=== PATIENT | female | born 1985 | race Caucasian/White ===

== ENCOUNTER 2017-10-13 06:04 | Inpatient (IN) ==
[2017-10-13] MEDS ORDERED: CALCIUM CARBONATE Chewable 500mg TABLET PO PRN (06:25)
[2017-10-13] MEDS ORDERED: OXYTOCIN DRIP 30 UNIT/500 ML ML IV PRN (06:25)
[2017-10-13] MEDS ORDERED: ACETAMINOPHEN 500 MG TABLET PO PRN (06:25)
[2017-10-13] MEDS ORDERED: METHYLERGONOVINE 0.2 MG/ML INJECTION IM PRN (06:25)
[2017-10-13] MEDS ORDERED: MAG-AL + SIM ORAL LIQUID 30ml PO PRN (06:25)
[2017-10-13] MEDS ORDERED: CARBOPROST 250 MCG/ML INJECTION IM PRN (06:25)
[2017-10-13] MEDS ORDERED: D5LR 1,000 ML IV PRN (06:25)
[2017-10-13] MEDS ORDERED: LIDOCAINE 1% (10mg/ml) 2mL INJ PF SDV ID PRN (06:25)
[2017-10-13] MEDS ORDERED: SALINE FLUSH 10ml SYRINGE IV PRN (06:25)
--- OUTSIDE RECORDS SUMMARY | 2017-10-13 06:27 | External Medical Summary | Continuity of Care Document ---
:1985 Author Organization [facility] Address [address] [place], [place] [id number] Phone Care Team Providers Name Role Phone Yanni Rizzo APRN Unavailable Unavailable Allergies, Adverse Reactions, Alerts Substance Reaction Severity Status No Known Drug Allergies Unknown Active Medications Medication Instructions Dosage Effective Dates Status Comments (start - stop) Novolin R Regular inject 2 Unit by - Active U-100 Insulin 100 Subcutaneous route unit/mL injection with evening meal. solution Increase by 2 units if needed to keep PP sugar <120. Lantus U-100 inject by 5 units - Active Insulin 100 subcutaneous route unit/mL at bedtime. Please subcutaneous dispense insulin solution pen if her insurance will cover. lancets 33 gauge use four times a - Active day OneTouch Verio test 1 Drop by Not Available - Active ICD 10: strips Intradermal route O24.410 4 times every day fasting and postprandial OneTouch Verio - Active ICD 10: System O24.410 FOLIC ACID - Active (unknown strength) 28 mg take 1 tablet by Not Available - Active iron-800 mcg oral route every tablet day Problems Condition Effective Dates (start - stop) Clinical Status Gestational diabetes in , - insulin controlled 34 weeks gestation of - Encounter for suprvsn of normal - , first trimester Less than 8 weeks gestation of - Gestational diabetes in , - insulin controlled 33 weeks gestation of - Gestational diabetes in , - insulin controlled Streptococcus B carrier state - complicating 36 weeks gestation of - Polycystic ovarian syndrome Encounter for [facility] general cnsl and advice on procreation Encounter for test, result - negative Secondary oligomenorrhea Secondary oligomenorrhea Abnormal weight gain Pap Smear Screening, Cervix Encounter for [facility] general cnsl and - advice on procreation Irregular Menses Gestational diabetes mellitus in - , diet controlled 29 weeks gestation of - Gestational diabetes mellitus in - , diet controlled 27 weeks gestation of - Gestational diabetes mellitus in - , diet controlled 31 weeks gestation of - Gestational diabetes mellitus in - , diet controlled 29 weeks gestation of - Gestational diabetes mellitus in - , diet controlled 30 weeks gestation of - Gestational diabetes in , - insulin controlled 37 weeks gestation of - Gestational diabetes in , - insulin controlled 34 weeks gestation of - Gestational diabetes in , - insulin controlled 35 weeks gestation of - Gestational diabetes in , - insulin controlled 36 weeks gestation of - Gestational diabetes in , - insulin controlled 35 weeks gestation of - Gestational diabetes in , - insulin controlled Streptococcus B carrier state - complicating 37 weeks gestation of - Gestational diabetes in , - insulin controlled 33 weeks gestation of - Oth infect w sexl mode of transmiss - comp preg, second tri Encounter for suprvsn of normal - , second trimester 19 weeks gestation of - Encounter for suprvsn of normal - , first trimester 11 weeks gestation of - Encounter for suprvsn of normal - , second trimester 23 weeks gestation of - Encounter for suprvsn of normal - , second trimester Encounter For Screening For - Malformations 15 weeks gestation of - Encounter for suprvsn of normal - , third trimester 28 weeks gestation of - Procedures Procedure Date OB Visit No Charge Results Test Name Date and Time Measure Units Reference Range Abnormal Flag Comments Unknown Advance Directives Directive Yes / No Effective Date File Name Unknown Encounters Encounter Practice Location Reason(s) Diagnoses Date Provider Care Team Description For Visit Members Jaime [place] Gestational Viveros Referring In Womens diabetes in 0-201 [place]. Provider: Mendy ACEVEDO, , 8 700 [place] Viveros PO Box insulin Medical K, 700 1522, [facility] [address], [facility] Dr [place], state 120, Sly 120, , complicating Clifford Silverstreet, [email or web address] weeks [place], [place], tel:+ gestation [phone]. , [place]. tel: tel: [phone] Jaime [place] Gestational Viveros Referring In Womens Ultrasound diabetes in 0-201 [place]. Provider: Mendy ACEVEDO, , 8 700 Monet Viveros PO Box insulin Medical K, 700 1522, [email or web address] [place] [address], weeks gestation Dr, [facility] Dr [place]KEON, of 120, Sly 120, [id number], [facility], [place], [place], tel:+ [phone]. , [place]. tel: tel: [phone] Jaime [place] Gestational 2 Viveros Referring In Womens diabetes in 3-201 [place]. Provider: Health KRISTINA, , 8 700 Monet Viveros PO Box insulin Medical K, 700 1522, [facility] [address], [facility] Dr [place]KEON, state 120, Sly 120, [id number], complicating Clifford [place], [email or web address] weeks LINDA, [place], tel:+ gestation [phone]. , [place]. tel: tel: [phone] Jaime [place] Gestational Sep-2 Viveros Referring In Womens Ultrasound diabetes in [place]. Provider: Health PA, , 8 700 Monet Viveros PO Box insulin Medical K, 700 1522, [email or web address] [facility] , [facility] Dr [place]KEON, of 120, Sly 120, [id number], Clifford [place], [facility], [place], tel: [phone]. , [place]. tel: tel: [phone] Jaime [place] Gestational Sep- Viveros Referring In Womens diabetes in [place]. Provider: Health PA, , 8 700 Monet Viveros PO Box insulin Medical K, 700 1522, [email or web address] [facility] [place], weeks gestation , [facility] Dr MCKEON, of 120, Sly 120, , Clifford [place], [facility], [place], tel: [phone]. , [place]. tel: tel: [phone] Jaime [place] Gestational Sep- Viveros Referring In Womens Ultrasound diabetes in [place]. Provider: Health PA, , 8 700 Monet Viveros PO Box insulin Medical K, 700 1522, [email or web address] [facility], weeks gestation , [facility] Dr MCKEON, of 120, Sly 120, [id number], Clifford [place], [place], [place], tel: [phone]. , [place]. tel: tel: [phone] Jaime [place] Gestational Sep-0 Viveros Referring In Womens diabetes in [place]. Provider: Health PA, , 8 700 Moent Viveros PO Box insulin Medical K, 700 1522, [email or web address] [facility], weeks gestation , [facility] Dr [place]KE[place], of 120, Sly 120, [id number], Clifford [place], [place], [place], tel: [phone]. , [place]. tel: tel: [phone] Jaime [place] Gestational Sep-0 Viveros Referring In Womens Ultrasound diabetes in [place]. Provider: Health PA, , 8 700 Monet Viveros PO Box insulin Medical K, 700 1522, [email or web address] [facility], weeks gestation , [facility] Dr [place]KEON, of 120, Sly 120, , Clifford [place], [place], tel: [phone]. , [place]. tel: tel: [phone] Jaime [place] Gestational Sep-0 Viveros Referring In Womens diabetes in [place]. Provider: Health PA, , 8 700 Monet Viveros PO Box insulin Medical K, 700 1522, [email or web address] [facility] , [facility] Dr [place]KEON, of 120, Sly 120, , Clifford [place], [place], tel: [phone]. , [place]. tel: tel: [phone] Jaime [place] Gestational Sep-0 Viveros Referring In Womens Ultrasound diabetes in [place]. Provider: Health PA, , 8 700 Monet Viveros PO Box insulin Medical K, 700 1522, [email or web address] [facility] , [facility] Dr [place]KEON, of 120, Sly 120, , Clifford [place], [place], tel: [phone]. , [place]. tel: tel: [phone] [place] Gestational Aug-1 Viveros Referring In Womens diabetes mellitus [place]. Provider: Health PA, in , 8 700 Monet Vievros PO Box diet [email or web address] Medical K, 700 1522, weeks gestation [facility], of , [facility] Dr [place]KEON, 120, Sly 120, , Clifford [place], [place], tel: [phone]. , [place]. tel: tel: [phone] Jaime [place] Gestational Daren- Viveros Referring In Womens diabetes mellitus 1-201 [place]. Provider: Health PA, in , 8 700 Monet Viveros PO Box diet [email or web address] Medical K, 700 1522, weeks gestation [facility], of , [facility] Dr [place]KEON, 120, Sly 120, [id number], Clifford [place], [place], tel:[phone]. , [place]. tel: tel: [phone] [place] Gestational Daren-0 Viveros Referring In Womens diabetes mellitus 4-201 [place]. Provider: Health PA, in , 8 700 Monet Viveros PO Box diet [email or web address] Medical K, 700 1522, weeks gestation [facility], of , [facility] Dr [place]KEON, 120, Sly 120, [id number], Clifford [place], [place], tel:+ [phone]. , [place]. tel: tel: [phone] [place] Gestational Daren-0 Viveros Referring In Womens Ultrasound diabetes mellitus 4-201 [place]. Provider: Health PA, in , 8 700 Monet Viveros PO Box diet [email or web address] Medical K, 700 1522, weeks gestation [facility], of , [facility] Dr [place]ON, 120, Sly 120, [id number], Clifford [place], [place], tel: [phone]. , [place]. tel: tel: [phone] H[place] Encounter for May-2 Viveros Referring In Womens suprvsn of normal 3-201 [place]. Provider: Health PA, , third 8 700 Monet Viveros PO Box [email or web address] weeks Medical K, 700 1522, gestation of [facility], , [facility] Dr [place]KEON, 120, Sly 120, [id number], Clifford [place], [place], tel: [phone]. , [place]. tel: tel: [phone] Horton Gestational May-2 Viveros Referring In Womens diabetes mellitus 2-201 [place]. Provider: Health PA, in , 8 700 Monet Viveros PO Box diet [email or web address] Medical , 700 1522, weeks gestation [facility], of , [facility] Dr [place], 120, Sly 120, , Clifford [place], [place], [place], tel:+ [phone]. , [place]. tel: tel: [phone] Jaime H[place] May-2 Viveros In Womens 1-201 [place]. Health KRISTINA, 8 700 PO Box Medical 1522, [place], , [facility] [place], 120, , [place], tel:[phone] , [place]. tel: [phone] Jaime [place] Encounter for Apr-2 Viveros Referring In Womens suprvsn of normal 4-201 [place]. Provider: Health KRISTINA, , second 8 700 Monet Viveros PO Box [email or web address] weeks [facility], 700 1522, gestation of [facility], Dr, [facility] Dr [place]KE[place], 120, Sly 120, , Clifford [place], [place], [place], tel:+ [phone]. , [place]. tel: tel: [phone] Jaime [place] Oth infect w sexl Mar-2 Viveros Referring In Womens mode of transmiss 7-201 [place]. Provider: Health KRISTINA, comp preg, second 8 700 Monet Viveros PO Box triEncounter for [facility], 700 1522, suprvsn of normal [facility], , second , [facility] Dr [place]KEON, [email or web address] weeks 120, Sly 120, , gestation of Clifford [place], [place], [place], tel: [phone]. , [place]. tel: tel: [phone] Jaime [place] Encounter for Feb-2 Viveros Referring In Womens suprvsn of normal 7-201 [place]. Provider: Health KRISTINA, , second 8 700 [place]et Viveros PO Box trimesterEncounte Medical , 700 1522, r For [facility], Screening For , [facility] Dr [place]KEON, [id number] 120, Sly 120, [id number], weeks gestation Clifford [place], [place], [place], tel: [phone]. , [place]. tel: tel: [phone] Associates Clifford Encounter for Jeferson-3 Viveros Referring In Womens suprvsn of normal 0-201 [place]. Provider: Mendy ACEVEDO, , first 8 700 Monet Viveros PO Box [email or web address] weeks Medical , 700 1522, gestation of [facility], , [facility] Dr [place]KE[place], 120, Sly 120, , Clifford [place], [place], tel:[phone]. , [place]. tel: tel: [phone] Jaime H[place] Encounter for Jeferson-0 Viveros Referring In Womens suprvsn of normal 2-201 [place]. Provider: Mendy ACEVEDO, , first 8 700 Monet Viveros PO Box trimesterLess Medical , 700 1522, than 8 weeks [facility], gestation of , [facility] Dr [place]KEON, 120, Sly 120, , Clifford [place], [place], tel: [phone]. , [place]. tel: tel: [phone] Associates Clifford Irregular Menses Dec-2 Viveros In Womens 1-201 [place]. Mendy ACEVEDO, 7 700 PO [address] Medical [address], [address], [facility] [place], 120, [id number], [place], [place], tel: [phone] , [place]. tel: [phone] Jaime H[place] Polycystic Sep-1 Viveros Referring In Womens ovarian 3-201 [place]. Provider: Mendy ACEVEDO, syndromeEncounter 7 700 Monet Viveros PO Box for ot general Medical K, 700 1522, cnsl and advice [facility], on , [facility] Dr MCKEON, procreationEncoun 120, Sly 120, [id number], ter for Clifford [place], test, result [place], tel: [phone]. , [place]. tel: tel: [phone] [facility] Oct- Viveros Referring In Womens oligomenorrheaSec 2-201 [place]. Provider: Mendy ACEVEDO, ondary 7 700 Monet Viveros PO Box oligomenorrheaAbn Medical , 700 1522, ormal weight [facility] [place], [address], [place], Screening, 120, Sly 120, , CervixEncounter [place], for oth general [place], tel: cnsl and advice [phone]. on procreation , [place]. tel: tel: [phone] Jaime H[place] May-2 [place] In Womens 8-200 [place]. Mendy ACEVEDO, 8 700 PO [address] Medical [address], Center Dr Lj, [place], 120, , [place], tel: [phone] , [place]. tel: [phone] Family History Family Member Diagnosis Age At Onset Maternal Grandfather Diabetes mellitus No family history of Breast Cancer No family history of Epilepsy No family history of Cardiovascular Disease Maternal Grandfather Leukemia No family history of Stroke Paternal Grandmother Colon Cancer No family history of Thrombosis No family history of Hypertension No family history of Ovarian Cancer No family history of Thyroid Disorder No family history of Osteoporosis Paternal Grandmother Renal disease No family history of Lung Disease Son Congenital Anomaly Immunizations Vaccine Date Status Comments Tdap completed Source: Other Provider Influenza, injectable, completed Note: [facility] quadrivalent, preservative free, 3 Employee ; Source: Other yrs or older Provider Payers Payer name Insurance type Covered democrat ID Authorization(s) [facility] [id number] BCBS Out Of State [id number] Social History Type Description Quantity Date Captured Alcohol Use Details No Caffeine Use Details Unknown Tobacco Use Status Unknown Smoking Status Never smoker Vital Signs Date / Height Weight BMI Pulse Blood Temperature Respiratory Body Head BMI Time: Rate Pressure Rate Surface Circumference percentile Area . 43.0 lbs 6 3:14 kg/m PM eter (2) . 43.0 130/77 -2018 lbs 6 mm[Hg] 3:34 kg/m PM eter (2) Chief Complaint And Reason For Visit Unknown Chief Complaint And Reason For Visit Reason For Referral Reason For Referral Unknown Plan Of Care Date Type Action Status Goal Lifestyle education regarding completed diet Goal Lifestyle education regarding completed diet Appointment Huong Herrera BOOKED Appointment Huong Herrera BOOKED Future Order: Lab Order HIV 1/0/2 Ag/Ab with Reflex Ordered ([id number]) Future Order: Lab Order Obstetric Panel With Ordered Fourth-generation HIV ([id number]) Future Order: Lab Order hCG,Beta Subunit, Qnt, Serum Ordered ([id number]) Future Order: Radiology Order Ultrasound OB Follow-up ([id number]) Ordered Future Order: Radiology Order Ultrasound OB Follow-up ([id number]) Ordered Future Order: Radiology Order Biophysical Profile without NST Ordered ([id number]) Future Order: Radiology Order Biophysical Profile without NST Ordered ([id number]) Future Order: Radiology Order Biophysical Profile without NST Ordered ([id number]) Future Order: Radiology Order Biophysical Profile without NST Ordered ([id number]) Future Order: Radiology Order Ultrasound OB Follow-up ([id number]) Ordered Date Type Problem Goal Intervention Status Start Date Unknown. History Of Present Illness Encounter Date Complaint History Of Present Illness This patient has no known history of present illness Functional Status Encounter Date Functional Assessment Cognitive Assessment Unknown Medications Administered Medication Instructions Dosage Effective Dates (start - stop) Status Comments Drug Treatment Unknown Instructions Date Instruction Additional Information influenza vaccine environmental / work hazards travel use of any medications (including supplements, vitamins, herbs, OTC drugs) domestic violence seat belt use childbirth classes / hospital facilities hospital registration genetic testing HIV and other routine tests risk factors identified by history anticipated course of care nutrition and weight gain counseling, special diet toxoplasmosis precautions (cats / raw meat) sexual activity exercise indications for ultrasound new ob handbook Giving encouragement to exercise Related to Body mass index 33.0-33.9 Lifestyle education regarding diet Related to Body mass index 33.0-33.9 Giving encouragement to exercise Related to Body mass index 33.0-33.9 Lifestyle education regarding diet Related to Body mass index 33.0-33.9
--- OUTSIDE RECORDS SUMMARY | 2017-10-13 06:28 | External Medical Summary | Continuity of Care Document ---
:1985 Author Organization [facility] Address [address] [place], [place] [id number] Phone Care Team Providers Name Role Phone Yanni Rizzo APRN Unavailable Unavailable Allergies, Adverse Reactions, Alerts Substance Reaction Severity Status No Known Drug Allergies Unknown Active Medications Medication Instructions Dosage Effective Dates Status Comments (start - stop) Lantus U-100 inject by 5 units - [...] insulin controlled 33 weeks gestation of - Encounter for suprvsn of normal - , first trimester Less than 8 weeks gestation of - Polycystic ovarian syndrome Encounter for oth general cnsl and advice on procreation Encounter for test, result - negative Secondary oligomenorrhea Secondary oligomenorrhea Abnormal weight gain Pap Smear Screening, Cervix Encounter for oth general cnsl and - advice on procreation [...] Provider Care Team Description For Visit [facility] [place] Gestational Sep- Viveros Referring In Womens Ultrasound diabetes in [place]. Provider: Health PA, , 8 700 [place] Viveros PO Box insulin Medical K, 700 1522, [email or web address] [facility], weeks gestation , [facility] Dr MCKEON, of 120, Sly 120, , [place], LINDA MCKEON, tel: [phone]. , [place]. tel: tel: [phone] Jaime [place] Gestational Sep-1 Viveros Referring In Womens diabetes in [place]. Provider: Health PA, , 8 700 [place] Viveros PO Box insulin Medical K, 700 1522, [email or web address] [facility], weeks gestation , [facility] Dr MCKEON, of 120, Sly 120, , [place], LINDA MCKEON, tel: [phone]. , [place]. tel: tel: [phone] [place] Gestational Sep-1 Viveros Referring In Womens Ultrasound diabetes in [place]. Provider: Health PA, , 8 700 [place] Viveros PO Box insulin Medical K, 700 1522, [id number] [facility], weeks gestation , [facility] Dr MCKEON, of 120, Sly 120, , [place], LINDA MCKEON, tel: [phone]. , [place]. tel: tel: [phone] Jaime [place] Gestational Sep-0 Viveros Referring In Womens diabetes in [place]. Provider: Health PA, , 8 700 [place] Viveros PO Box insulin Medical K, 700 1522, [email or web address] [facility], [facility] , [facility] Dr MCKEON, of 120, Sly 120, , [place], LINDA MCKEON, tel:[phone]. , [place]. tel: tel: [phone] Jaime [place] Gestational Rubio-0 Viveros Referring In Womens Ultrasound diabetes in [place]. Provider: Health PA, , 8 700 [place] Viveros PO Box insulin Medical K, 700 1522, [email or web address] [facility], weeks gestation , [facility] Dr MCKEON, of 120, Sly 120, [id number], [place], LINDA, LINDA, tel: [phone]. , [place]. tel: tel: [phone] Jaime [place] Gestational Rubio-0 Viveros Referring In Womens diabetes in [place]. Provider: Health PA, , 8 700 [place] Viveros PO Box insulin Medical K, 700 1522, [email or web address] [facility], weeks gestation , [facility] Dr MCKEON, of 120, Sly 120, , [place], LINDA, LINDA, tel:[phone]. , [place]. tel: tel: [phone] Jaime [place] Gestational Rubio-0 Viveros Referring In Womens Ultrasound diabetes in [place]. Provider: Health PA, , 8 700 [place] Viveros PO Box insulin Medical K, 700 1522, [email or web address] [facility], weeks gestation , [facility] Dr MCKEON, of 120, Sly 120, , [place], LINDA, LINDA, tel: [phone]. , [place]. tel: tel: [phone] Jaime [place] Gestational Daren-1 Viveros Referring In Womens diabetes mellitus [place]. Provider: Health KRISTINA, in , 8 700 [place] Viveros PO Box diet [email or web address] Medical K, 700 1522, weeks gestation [facility], of , [facility] Dr MCKEON, 120, Sly 120, [id number], [place], [place] LINDA, LINDA, tel:[phone]. , [place]. tel: tel: [phone] Jaime [place] Gestational Daren-1 Viveros Referring In Womens diabetes mellitus - [place]. Provider: Health PA, in , 8 700 [place] Viveros PO Box diet Medical K, 700 1522, weeks gestation [facility], of , [facility] Dr MCKEON, 120, Sly 120, [id number], [place], LINDA, LINDA, tel: [phone]. , [place]. tel: tel: [phone] Jaime [place] Gestational Daren-0 Viveros Referring In Womens diabetes mellitus 4-201 [place]. Provider: Health KRISTINA, in , 8 700 [place] Viveros PO Box diet [email or web address] Medical , 700 1522, weeks gestation [facility], of , [facility] Dr MCKEON, 120, Sly 120, [id number], [place], LINDA, LINDA, tel: [phone]. , [place]. tel: tel: [phone] Jaime [place] Gestational Daren-0 Viveros Referring In Womens Ultrasound diabetes mellitus 4-201 [place]. Provider: Health KRISTINA, in , 8 700 [place] Viveros PO Box diet [email or web address] Medical , 700 1522, weeks gestation [facility], of , [facility] Dr MCKEON, 120, Sly 120, [id number], [place], LINDA, LINDA, tel: [phone]. , [place]. tel: tel: [phone] Jaime [place] Encounter for May-2 Viveros Referring In Womens suprvsn of normal 3-201 [place]. Provider: Mendy ACEVEDO, , third 8 700 [place] Viveros PO Box [email or web address] weeks Medical , 700 1522, gestation of [facility], , [facility] Dr MCKEON, 120, Sly 120, [id number], [place], [place] LINDA, LINDA, tel: [phone]. , [place]. tel: tel: [phone] Jaime [place] Gestational May-2 Viveros Referring In Womens diabetes mellitus 2-201 [place]. Provider: Health KRISTINA, in , 8 700 [place] Viveros PO Box diet [email or web address] Medical , 700 1522, weeks gestation [facility], of , [facility] Dr MCKEON, 120, Sly 120, [id number], [place], [place] LINDA MCKEON, tel:[phone]. , [place]. tel: tel: [phone] Jaime [place] May-2 Viveros In Womens 1-201 [place]. Health KRISTINA, 8 700 PO Box Medical 1522, [facility], , [facility] [place], 120, [id number], [place], tel:[phone] , [place]. tel: [phone] Jaime [place] Encounter for Apr-2 Viveros Referring In Womens suprvsn of normal 4-201 [place]. Provider: Health KRISTINA, , second 8 700 [place] Viveros PO Box [email or web address] weeks Medical , 700 1522, gestation of [facility], , [facility] Dr MCKEON, 120, Sly 120, , [place], LINDA MCKEON, tel:[phone]. , [place]. tel: tel: [phone] Jaime [place] Oth infect w sexl Mar-2 Viveros Referring In Womens mode of transmiss 7-201 [place]. Provider: Health KRISTINA, comp preg, second 8 700 [place] Viveros [facility], 700 1522, suprvsn of normal [facility], , second , [facility] Dr MCKEON, [email or web address] weeks 120, Sly 120, , gestation of Clifford [place], [place] LINDA, LINDA, tel: [phone]. , [place]. tel: tel: [phone] Jaime [place] Encounter for Feb-2 Viveros Referring In Womens suprvsn of normal 7-201 [place]. Provider: Mendy AECVEDO, , second 8 700 [place] Viveros PO Box [facility] K, 700 1522, r For [facility], Screening For , [facility] Dr MCKEON, [id number] 120, Sly 120, [id number], weeks gestation Clifford [place], [place] of LINDA MCKEON, tel: [phone]. , [place]. tel: tel: [phone] Jaime [place] Encounter for 3 Viveros Referring In Womens suprvsn of normal 0-201 [place]. Provider: Mendy ACEVEDO, , first 8 700 [place] Viveros PO Box [email or web address] weeks Medical , 700 1522, gestation of [facility], , [facility] Dr MCKEON, 120, Sly 120, , [place], [place], [place], tel: [phone]. , [place]. tel: tel: [phone] Jaime [place] Encounter for Mar-0 Viveros Referring In Womens suprvsn of normal 2-201 [place]. Provider: Mendy ACEVEDO, , first 8 700 [place] Viveros PO Box trimesterLess Medical , 700 1522, than 8 weeks [facility], gestation of Dr, [facility] Dr MCKEON, 120, Sly 120, , [place], [place] LINDA, LINDA, tel:[phone]. , [place]. tel: tel: [phone] Jaime [place] Irregular Menses Dec- Viveros In Womens 1-201 [place]. Mendy ACEVEDO, 7 700 PO Box Medical 1522, [place], , Sly MCKEON, 120, , [place] LINDA [place], tel: [phone] , [place]. tel: [phone] Jaime [place] Polycystic Sep- Viveros Referring In Womens ovarian 3-201 [place]. Provider: Mendy ACEVEDO, syndromeEncounter 7 700 [place] Viveros PO Box for ot general Medical K, 700 1522, cnsl and advice [facility], on , [facility] Dr MCKEON, procreationEncoun 120, Sly 120, [id number], ter for [place], test, result LINDA MCKEON, tel: negative [phone]. , [place]. tel: tel: [phone] [facility] Viveros Referring In Womens oligomenorrheaSec 2-201 [place]. Provider: Health KRISTINA, onjessica 7 700 [place] Viveros PO Box oligomenorrheaAb Medical , 700 1522, [facility] L[facility], willPajames Santana Dr, Sly Center Dr [place], Screening, 120, Sly 120, , CervixEncounter [place], for oth general [place], [place], tel: cnsl and advice [phone]. on procreation , [place]. tel: tel: [phone] Jaime [place] May-2 [place] In Womens 8-200 [place]. Health KRISTINA, 8 700 PO Box Medical 1522, Center Lj, , Sly [place], 120, , [place], tel: [phone] , [place]. tel: [phone] Family History Family Member Diagnosis Age At [...] Source: Other Provider Influenza, injectable, completed Note: [facility] quadrivalent, preservative free, 3 Employee ; Source: Other yrs or older Provider Payers Payer name Insurance type Covered green party ID Authorization(s) [facility] [id number] [employer] Out Of State BL [id number] Social History Type Description Quantity Date Captured Alcohol Use Details No Caffeine Use Details Unknown Tobacco Use Status Unknown Smoking Status Never smoker Vital Signs Date / Height Weight BMI Pulse Blood Temperature Respiratory Body Head BMI Time: Rate Pressure Rate Surface Circumference percentile Area 233.90 42.6 -2018 lbs 4 1:31 kg/m PM eter (2) 41.9 -2018 8 1:28 kg/m PM eter (2) 233.90 42.6 138/78 -2018 lbs 4 mm[Hg] 1:48 kg/m PM eter (2) Chief Complaint And Reason For Visit Unknown Chief Complaint And Reason For Visit Reason For Referral Reason For Referral Unknown Plan Of Care Date Type Action Status Goal Lifestyle education regarding completed diet Goal Lifestyle education regarding completed diet Appointment Huong Herrera KEPT Appointment Huong Herrera BOOKED Appointment Huong Herrera BOOKED Future Order: Lab Order HIV 1/0/2 Ag/Ab with Reflex Ordered ([id number]) Future Order: Lab Order Obstetric Panel With Ordered Fourth-generation HIV ([id number]) Future Order: Lab Order hCG,Beta Subunit, Qnt, Serum Ordered ([id number]) Future Order: Radiology Order Ultrasound OB Follow-up ([id number]) Ordered Future Order: Radiology Order Biophysical Profile without NST Ordered ([id number]) Future Order: Radiology Order Biophysical Profile without NST Ordered ([id number]) Future Order: Radiology Order Biophysical Profile without NST Ordered ([id number]) Future Order: Radiology Order Ultrasound OB Follow-up ([id number]) Ordered Date Type Problem Goal Intervention Status [...]
--- OUTSIDE RECORDS SUMMARY | 2017-10-13 06:28 | External Medical Summary | Continuity of Care Document ---
:1985 Author Organization [email or web address] Address [address] [place], [place] [address] Phone Care Team Providers Name Role Phone Yanni Rizzo APRN Unavailable Unavailable Allergies, Adverse Reactions, Alerts Substance Reaction Severity Status No Known Drug Allergies Unknown Active Medications Medication Instructions Dosage Effective Dates Status Comments (start - stop) Lantus U-100 inject by 5 units - Active Insulin 100 subcutaneous route unit/mL at bedtime. Please subcutaneous dispense insulin solution pen if her insurance will cover. OneTouch Verio test 1 Drop by Not Available - Active ICD 10: strips Intradermal route O24.410 4 times every day fasting and postprandial OneTouch Verio - Active ICD 10: System O24.410 Lancets,Ultra Thin use by Intradermal Not Available - Active ICD 10: route 4 times O24.410 every day FOLIC ACID - Active (unknown strength) 28 mg take 1 tablet by Not Available - Active iron-800 mcg oral route every tablet day Problems Condition Effective Dates (start - stop) Clinical Status Gestational diabetes mellitus in - , diet controlled 30 weeks gestation of - Encounter for suprvsn of normal - , first trimester Less than 8 weeks gestation of - Gestational diabetes in , - insulin controlled 33 weeks gestation of - Polycystic ovarian syndrome [...] diet controlled 29 weeks gestation of - Oth infect w [...] Gestational Viveros Referring In Womens diabetes in 2201 [place]. Provider: Mendy ACEVEDO, , 8 700 [place] Viveros PO Box insulin Medical K, 700 1522, [email or web address] [facility], weeks gestation , [facility] Dr MCKEON, of 120, Sly 120, [id number], [place], LINDA MCKENO, tel:[phone] , [place]. tel: tel: [phone] Jaime [place] Gestational Aug- Viveros Referring In Womens diabetes mellitus 8-201 [place]. Provider: Mendy ACEVEDO, in , 8 700 [place] Viveros PO Box diet [email or web address] Medical K, 700 1522, weeks gestation [facility], of , [facility] Dr MCKEON, 120, Sly 120, [id number], [place], LINDA, LINDA, tel: [phone]. , [place]. tel: tel: [phone] Jaime [place] Gestational Daren-1 Viveros Referring In Womens diabetes mellitus 1-201 [place]. Provider: Health KRISTINA, in , 8 700 [place] Viveros PO Box diet [email or web address] Medical K, 700 1522, weeks gestation [facility], of , [facility] Dr MCKEON, 120, Sly 120, [id number], [place], LINDA, LINDA, tel: [phone]. , [place]. tel: tel: [phone] [place] Gestational Daren-0 Viveros Referring In Womens diabetes mellitus 4-201 [place]. Provider: Health KRISTINA, in , 8 700 [place] Viveros PO Box diet [email or web address] Medical K, 700 1522, weeks gestation [facility], of , [facility] Dr MCKEON, 120, Sly 120, [id number], [place], LINDA, LINDA, tel: [phone]. , [place]. tel: tel: [phone] Jaime [place] Gestational Daren-0 Viveros Referring In Womens Ultrasound diabetes mellitus 4-201 [place]. Provider: Mendy ACEVEDO, in , 8 700 [place] Viveros PO Box diet [email or web address] Medical K, 700 1522, weeks gestation [facility], of , [facility] Dr MCKEON, 120, Sly 120, [id number], [place], [place], [place], tel:[phone]. , [place]. tel: tel: [phone] Jaime [place] Encounter for May-2 Viveros Referring In Womens suprvsn of normal 3-201 [place]. Provider: Health KRISTINA, , third 8 700 [place] Viveros PO Box [email or web address] weeks Medical K, 700 1522, gestation of [facility], , [facility] Dr MCKEON, 120, Sly 120, , [place], LINDA, LINDA, tel:[phone]. , [place]. tel: tel: [phone] Jaime [place] Gestational May-2 Viveros Referring In Womens diabetes mellitus 2-201 [place]. Provider: Health KRISTINA, in , 8 700 [place] Viveros PO Box diet [email or web address] [facility], 700 1522, weeks gestation [facility], of , [facility] Dr MCKEON, 120, Sly 120, , [place], LINDA, LINDA, tel: [phone]. , [place]. tel: tel: [phone] Jaime [place] May-2 Viveros In Womens 1-201 [place]. Mendy ACEVEDO, 8 700 PO Box Medical 1522, [place], Dr, [facility] LINDA, 120, , [place], tel:[phone] , [place]. tel: [phone] Jaime [place] Encounter for Apr-2 Viveros Referring In Womens suprvsn of normal 4-201 [place]. Provider: Mendy ACEVEDO, , second 8 700 [place] Viveros PO Box weeks Medical , 700 1522, gestation of [facility], , [facility] Dr MCKEON, 120, Sly 120, , [place], LINDA, LINDA, tel:[phone]. , [place]. tel: tel: [phone] Jaime [place] Oth infect w sexl Mar-2 Viveros Referring In Womens mode of transmiss 7-201 [place]. Provider: Health KRISTINA, comp preg, second 8 700 [place] Viveros PO Box triEncounter for Medical , 700 1522, suprvsn of normal [facility], , second , [facility] Dr MCKEON, [email or web address] weeks 120, Sly 120, , gestation of [place], [place] LINDA MCKEON, tel: [phone]. , [place]. tel: tel: [phone] Jaime [place] Encounter for Feb-2 Viveros Referring In Womens suprvsn of normal 7-201 [place]. Provider: Health KRISTINA, , second 8 700 [place] Viveros PO Box trimesterEncounte Medical K, 700 1522, [facility] Screening For , [facility] Dr MCKEON, [email or web address] 120, Sly 120, [id number], weeks gestation Clifford [place], [place], [place], tel: [phone]. , [place]. tel: tel: [phone] [place] Encounter for Jeferson-3 Viveros Referring In Womens suprvsn of normal 0-201 [place]. Provider: Health KRISTINA, , first 8 700 [place] Viveros PO Box [email or web address] weeks Medical , 700 1522, gestation of [facility], Dr, [facility] Dr MCKEON, 120, Sly 120, , [place], [place] LINDA MCKEON, tel: [phone]. , [place]. tel: tel: [phone] Jaime [place] Encounter for Jeferson-0 Viveros Referring In Womens suprvsn of normal 2-201 [place]. Provider: Health KRISTINA, , first 8 700 [place] Viveros PO Box trimesterLess Medical K, 700 1522, than 8 weeks [facility] [place], gestation of Dr, [facility] Dr MCKEON, 120, Sly 120, , [place], [place] LINDA MCKEON, tel: [phone]. , [place]. tel: tel: [phone] [place] Irregular Menses Dec-2 Viveros In Womens 1-201 [place]. Health KRISTINA, 7 700 PO Box Medical 1522, [place], Sly [place], 120, , [place], [place] MCKEON, tel:[phone] , [place]. tel: [phone] Jaime [place] Polycystic Sep-1 Viveros Referring In Womens ovarian 3-201 [place]. Provider: Health KRISTINA, syndromeEncounter 7 700 [place] Viveros PO Box for oth general Medical K, 700 1522, cnsl and advice [facility] [place], on , [facility] Center Dr MCKEON, procreationEncoun 120, Sly 120, [id number], ter for [place], test, result LINDA, LINDA, tel: negative [phone]. , [place]. tel: tel: [phone] Jaime [place] Secondary Aug-2 Viveros Referring In Womens oligomenorrheaSec 2-201 [place]. Provider: Mendy ACEVEDO ondary 7 700 [place] Viveros PO Box oligomenorrheaAbn Medical K, 700 1522, ormal weight [facility] [place], gainPap Smear , [facility] Dr MCKEON, Screening, 120, Sly 120, [id number], CervixEncounter [place], [place] for oth general LINDA, LINDA, tel: cnsl and advice [phone]. on procreation , [place]. tel: tel: [phone] Jaime [place] Mar-2 [place] In Womens 8-200 [place]. Health KRISTINA, 8 700 PO Box Medical 1522, [place] [address] [place], [facility] [place], 120, [id number], [place], tel: [phone] , [place]. tel: [phone] Family History Family Member Diagnosis Age At [...] Source: Other Provider Influenza, injectable, completed Note: [facility] quadrivalent, preservative free, 3 Employee ; Source: Other yrs or older Provider Payers Payer name Insurance type Covered alliance party ID Authorization(s) [facility] [id number] [facility] Out Of State [id number] Social History Type Description Quantity Date Captured Alcohol Use Details No Caffeine Use Details No Tobacco Use Status Never smoked tobacco Smoking Status Never smoker Vital Signs Date / Height Weight BMI Pulse Blood Temperature Respiratory Body Head BMI Time: Rate Pressure Rate Surface Circumference percentile Area 231.70 42.2 135/ lbs 4 mm[Hg] 2:15 kg/m PM eter (2) Chief Complaint And Reason For Visit Unknown Chief Complaint And Reason For Visit Reason For Referral Reason For Referral Unknown Plan Of Care Date Type Action Status Goal Lifestyle education regarding completed diet Goal Lifestyle education regarding completed diet Appointment Huong Herrera BOOKED Appointment Huong Herrera BOOKED Appointment Huong Herrera BOOKED Appointment Huong Herrera BOOKED Appointment Huong Herrera BOOKED Appointment Huong Herrera BOOKED Appointment Huong Herrera BOOKED Appointment Huong Herrera BOOKED Future Order: Lab Order HIV 1/0/2 Ag/Ab with Reflex Ordered ([id number]) Future Order: Lab Order Obstetric Panel With Ordered Fourth-generation HIV ([id number]) Future Order: Lab Order hCG,Beta Subunit, Qnt, Serum Ordered ([id number]) Future Order: Radiology Order Ultrasound OB Follow-up ([id number]) Ordered Date Type Problem Goal Intervention Status [...]
--- OUTSIDE RECORDS SUMMARY | 2017-10-13 06:28 | External Medical Summary | Continuity of Care Document ---
:1985 Author Organization [facility] Address [address] [place], [place] [id number] Phone Care Team Providers Name Role Phone [...] - Polycystic ovarian syndrome Encounter for [facility] general cnsl and advice on procreation Encounter for test, result - negative Secondary oligomenorrhea Secondary oligomenorrhea Abnormal weight gain Pap Smear Screening, Cervix Encounter for [facility] general cnsl and - advice on procreation [...] weeks gestation of - Procedures Procedure Date biophys prfl w/o nstress test Results Test Name Date and Time Measure Units Reference Range Abnormal Flag Comments Unknown Advance Directives Directive Yes / No Effective Date File Name Unknown Encounters Encounter Practice Location Reason(s) Diagnoses Date Provider Care Team Description For Visit Members Jaime Horton Gestational Viveros Referring In Womens diabetes in 0-201 [place]. Provider: Mendy ACEVEDO, , 8 700 Monet Viveros PO Box insulin Medical K, 700 1522, [facility] le[address], [facility] Dr MCKEON, state 120, Sly 120, , complicating Clifford [place], [email or web address] weeks LINDA MCKEON, tel:+ gestation [phone]. , [place]. tel: tel: [phone] Jaime Horton Gestational 3 Viveros Referring In Womens Ultrasound diabetes in 0-201 [place]. Provider: Mendy ACEVEDO, , 8 700 Monet Viveros PO Box insulin Medical K, 700 1522, [email or web address] [place], weeks gestation , [facility] Dr MCKEON, of 120, Sly 120, [id number], [facility], LINDA MCKEON, tel: [phone]. , [place]. tel: tel: [phone] Jaime Horton Gestational 2 Viveros Referring In Womens diabetes in 3-201 [place]. Provider: Mendy ACEVEDO, , 8 700 Monet Viveros PO Box insulin Medical K, 700 1522, [facility] [address] [facility], [facility] Dr MCKEON, state 120, Sly 120, [id number], complicating Clifford [place], weeks LINDA MCKEON, tel:+ gestation [phone]. , [place]. tel: tel: [phone] Jaime Horton Gestational Sep-2 Viveros Referring In Womens Ultrasound diabetes in [place]. Provider: Health PA, , 8 700 Monet Viveros PO Box insulin Medical K, 700 1522, [email or web address] [facility], weeks gestation , [facility] Dr MCKEON, of 120, Syl 120, [id number], Clifford H[place], LINDA, LINDA, tel: [phone]. , [place]. tel: tel: [phone] Jaime Horton Gestational Sep-1 Viveros Referring In Womens diabetes in [place]. Provider: Health PA, , 8 700 Monet Viveros PO Box insulin Medical K, 700 1522, [email or web address] [facility], weeks gestation , [facility] Dr MCKEON, of 120, Sly 120, , Clifford Horton, LINDA, LINDA, tel: [phone]. , [place]. tel: tel: [phone] Jaime Horton Gestational Sep-1 Viveros Referring In Womens Ultrasound diabetes in [place]. Provider: Health PA, , 8 700 Monet Viveros PO Box insulin Medical K, 700 1522, [email or web address] [facility], weeks gestation , [facility] Dr MCKEON, of 120, Sly 120, , Clifford Horton, LINDA MCKEON, tel: [phone]. , [place]. tel: tel: [phone] Jaime Horton Gestational Sep-0 Viveros Referring In Womens diabetes in [place]. Provider: Health PA, , 8 700 Monet Viveros PO Box insulin Medical K, 700 1522, [email or web address] [facility], weeks gestation , [facility] Dr MCKEON, of 120, Sly 120, [id number], Clifford Horton, LINDA MCKEON, tel: [phone]. , [place]. tel: tel: [phone] Jaime Horton Gestational Sep-0 Viveros Referring In Womens Ultrasound diabetes in [place]. Provider: Health PA, , 8 700 Monet Viveros PO Box insulin Medical K, 700 1522, [email or web address] [facility], weeks gestation , [facility] Dr MCKEON, of 120, Sly 120, , Clifford Horton, LINDA, LINDA, tel: [phone]. , [place]. tel: tel: [phone] Jaime Horton Gestational Sep-0 Viveros Referring In Womens diabetes in [place]. Provider: Health PA, , 8 700 Monet Viveros PO Box insulin Medical K, 700 1522, [email or web address] [facility], weeks gestation , [facility] Dr MCKEON, of 120, Sly 120, , Clifford Horton, LINDA, LINDA, tel: [phone]. , [place]. tel: tel: [phone] Jaime Horton Gestational Sep-0 Viveros Referring In Womens Ultrasound diabetes in [place]. Provider: Health PA, , 8 700 Monet Viveros PO Box insulin Medical K, 700 1522, [email or web address] [facility] [place], weeks gestation , [facility] Dr MCKEON, of 120, Sly 120, , Clifford Horton, LINDA, LINDA, tel: [phone]. , [place]. tel: tel: [phone] Jaime Horton Gestational Aug- Viveros Referring In Womens diabetes mellitus [place]. Provider: Health PA, in , 8 700 Monet Viveros PO Box diet [id number] Medical K, 700 1522, weeks gestation [facility] [place], of , [facility] Dr MCKEON, 120, Sly 120, [id number], Clifford [place], [place], [place], tel: [phone]. , [place]. tel: tel: [phone] Jaime Horton Gestational Daren- Viveros Referring In Womens diabetes mellitus 1-201 [place]. Provider: Mendy ACEVEDO, in , 8 700 Monet Viveros PO Box diet [id number] Medical K, 700 1522, weeks gestation [facility], of , [facility] Dr MCKEON, 120, Sly 120, [id number], Clifford Horton, LINDA, LINDA, tel:+ [phone]. , [place]. tel: tel: [phone] Horton Gestational Daren-0 Viveros Referring In Womens diabetes mellitus 4-201 Monet. Provider: Mendy ACEVEDO, in , 8 700 Monet Viveros PO Box diet [id number] Medical K, 700 1522, weeks gestation [facility], of , [facility] Dr MCKEON, 120, Sly 120, [id number], Clifford Horton, LINDA, LINDA, tel:[phone]. , [place]. tel: tel: [phone] Horton Gestational Daren-0 Viveros Referring In Womens Ultrasound diabetes mellitus 4-201 [place]. Provider: Mendy ACEVEDO, in , 8 700 Monet Viveros PO Box diet [email or web address] Medical K, 700 1522, weeks gestation [facility] [place], of , [facility] Dr MCKEON, 120, Sly 120, [id number], Clifford Horton, LINDA MCKEON, tel:[phone]. , [place]. tel: tel: [phone] Horton Encounter for May-2 Viveros Referring In Womens suprvsn of normal 3-201 [place]. Provider: Health KRISTINA, , third 8 700 Monet Viveros PO Box [email or web address] weeks Medical , 700 1522, gestation of [facility] [place], , [facility] Dr MCKEON, 120, Sly 120, [id number], Clifford Horton, LINDA, LINDA, tel: [phone]. , [place]. tel: tel: [phone] Horton Gestational May-2 Viveros Referring In Womens diabetes mellitus 2-201 [place]. Provider: Health KRISTINA, in , 8 700 Monet Viveros PO Box diet [id number] Medical K, 700 1522, weeks gestation [facility], of , [facility] Dr MCKEON, 120, Sly 120, [id number], Clifford [place], [place], LINDA, tel:+ [phone]. , [place]. tel: tel: [phone] Jaime Horton May-2 Viveros In Womens 1-201 Monet. Mendy ACEVEDO, 8 700 PO Box Medical 1522, [place], , [facility] [place], 120, [id number], [place], tel:+ [phone] , [place]. tel: [phone] Jaime Horton Encounter for Apr-2 Viveros Referring In Womens suprvsn of normal 4-201 Monet. Provider: Mendy ACEVEDO, , second 8 700 Monet Viveros PO Box [email or web address] weeks Medical , 700 1522, gestation of [facility], , [facility] Dr MCKEON, 120, Lsy 120, , Clifford [place], [place], [place], tel:[phone]. , [place]. tel: tel: [phone] Jaime Horton Oth infect w sexl Mar-2 Viveros Referring In Womens mode of transmiss 7-201 Monet. Provider: Mendy ACEVEDO, comp preg, second 8 700 Monet Viveros PO Box triEncounter for Medical K, 700 1522, suprvsn of normal [facility], , second , [facility] Dr MCKEON, [email or web address] weeks 120, Sly 120, [id number], gestation of Clifford Horton, LINDA, LINDA, tel:[phone]. , [place]. tel: tel: [phone] Jaime Horton Encounter for Feb-2 Viveros Referring In Womens suprvsn of normal 7-201 Monet. Provider: Mendy ACEVEDO, , second 8 700 Monet Viveros PO Box trimesterEncounte Medical , 700 1522, r For [facility] Screening For Dr, [facility] Dr MCKEON, [id number] 120, Sly 120, , weeks gestation Clifford [place], [place] of LINDA, LINDA, tel:[phone]. , [place]. tel: tel: [phone] Associates Clifford Encounter for Jeferson-3 Viveros Referring In Womens suprvsn of normal 0-201 Monet. Provider: Mendy ACEVEOD, , first 8 700 Monet Viveros PO Box [email or web address] weeks Medical , 700 1522, gestation of [facility], , [facility] Dr MCKEON, 120, Sly 120, , Clifford Horton, LINDA MCKEON, tel:[phone]. , [place]. tel: tel: [phone] Jaime Horton Encounter for Jeferson-0 Viveros Referring In Womens suprvsn of normal 2-201 Monet. Provider: Mendy ACEVEDO, , first 8 700 Monet Viveros PO Box trimesterLess Medical , 700 1522, than 8 weeks [facility], gestation of Dr, [facility] Dr MCKEON, 120, Sly 120, , Clifford Horton, LINDA MCKEON, tel:[phone]. , [place]. tel: tel: [phone] Jaime Horton Irregular Menses Dec-2 Viveros In Womens 1-201 Monet. Mendy ACEVEDO, 7 700 PO Box Medical 1522, [place] Dr Lj [facility] LINDA, 120, [id number], Clifford, [place] MCKEON, tel: [phone] , [place]. tel: [phone] Jaime Horton Polycystic Sep-1 Viveros Referring In Womens ovarian 3-201 Monet. Provider: Mendy ACEVEDO syndromeEncounter 7 700 Monet Viveros PO Box for [facility] general Medical K, 700 1522, cnsl and advice [facility], on , [facility] Dr MCKEON, procreationEncoun 120, Sly 120, [id number], ter for Clifford [place], [place] test, result [place], tel: negative [phone]. , [place]. tel: tel: [phone] Associates Clifford Villanueva Oct- Viveros Referring In Womens oligomenorrheaSec 2-201 Monet. Provider: Mendy ACEVEDO, ondary 7 700 Monet Viveros [facility], ormal weight Center Medical [place], David Smear , [place], Screening, 120, Sly 120, , CervixEncounter Clifford, [place], for oth general [place], [place], tel: cnsl and advice [phone]. on procreation , [place]. tel: tel: [phone] Jaime Horton May-2 [place] In Womens 8-200 [place]. Mendy ACEVEDO, 8 700 PO Box Medical 1522, Center Dr Lj, Sly [place], 120, , [place], [place], tel: [phone] , [place]. tel: [phone] Family History Family Member Diagnosis Age At [...] Source: Other Provider Influenza, injectable, completed Note: [facility] quadrivalent, preservative free, 3 Employee ; Source: Other yrs or older Provider Payers Payer name Insurance type Covered libertarian ID Authorization(s) [facility] [id number] BCBS Out Of State [id number] Social History Type Description Quantity Date Captured Unknown Vital Signs Date / Height Weight BMI Pulse Blood Temperature Respiratory Body Head BMI Time: Rate Pressure Rate Surface Circumference percentile Area Unknown Chief Complaint And Reason For Visit Unknown Chief Complaint And Reason For Visit Reason For Referral Reason For Referral Unknown Plan Of Care Date Type Action Status Goal Lifestyle education regarding completed diet Goal Lifestyle education regarding completed diet Appointment Huong Herrera BOOKED Appointment Huong Herrera BOOKED Future Order: Radiology Order Biophysical Profile without NST Ordered ([id number]) Future Order: Lab Order HIV 1/0/2 Ag/Ab with Reflex Ordered ([id number]) Future Order: Lab Order Obstetric Panel With Ordered Fourth-generation HIV ([id number]) Future Order: Lab Order hCG,Beta Subunit, Qnt, Serum Ordered ([id number]) Future Order: Radiology Order Ultrasound OB Follow-up ([id number]) Ordered Future Order: Radiology Order Ultrasound OB Follow-up ([id number]) Ordered Future Order: Radiology Order Biophysical Profile without NST Ordered ([id number]) Future Order: Radiology Order Biophysical Profile without NST Ordered ([id number]) Future Order: Radiology Order Biophysical Profile without NST Ordered ([id number]) Future Order: Radiology Order Ultrasound OB Follow-up ([id number]) Ordered Date Type Problem Goal Intervention Status [...]
--- OUTSIDE RECORDS SUMMARY | 2017-10-13 06:28 | External Medical Summary | Continuity of Care Document ---
:1985 Author Organization [facility] Address [address] [place], [place] [phone] Phone Care Team Providers Name Role Phone [...] diet controlled 31 weeks gestation of - Encounter for suprvsn [...] PO Box insulin Medical K, 700 1522, [email or web address] [facility] weeks [facility] Dr, [facility] Dr MCKEON, of 120, Sly 120, [id number], Clifford [place], [place] LINDA MCKEON, tel:[phone] [phone] , [place]. tel: tel: [phone] Jaime Horton Gestational Rubio-0 Viveros Referring In Womens diabetes in 2- [place]. Provider: Health PA, , 8 700 Monet Viveros PO Box insulin Medical K, 700 1522, [email or web address] [facility], weeks gestation , [facility] Dr MCKEON, of 120, Sly 120, [id number], Clifford [place], [place], [place], tel: [phone]. , [place]. tel: tel: [phone] Jaime Horton Gestational Rubio-0 Viveros Referring In Womens Ultrasound diabetes in 2- Monet. Provider: Health PA, , 8 700 Monet Viveros PO Box insulin Medical K, 700 1522, [email or web address] [facility], weeks gestation , [facility] Dr MCKEON, of 120, Sly 120, , Clifford H[place], [place], [place], tel: [phone]. , [place]. tel: tel: [phone] Jaime Horton Gestational Daren-1 Viveros Referring In Womens diabetes mellitus 8- Monet. Provider: Health PA, in , 8 700 Monet Viveros PO Box diet [id number] Medical K, 700 1522, weeks gestation [facility], of Dr [facility] Dr MCKEON, 120, Sly 120, [id number], Clifford H[place], [place], [place], tel: [phone]. , [place]. tel: tel: [phone] Jaime Horton Gestational Daren-1 Viveros Referring In Womens diabetes mellitus 1- Monet. Provider: Health PA, in , 8 700 Monet Viveros PO Box diet [email or web address] Medical K, 700 1522, weeks gestation [facility], of , [facility] Dr MCKEON, 120, Sly 120, [id number], Clifford Horton, [place], [place], tel: [phone]. , [place]. tel: tel: [phone] Jaime Horton Gestational Daren-0 Viveros Referring In Womens diabetes mellitus 4-201 Monet. Provider: Health KRISTINA, in , 8 700 Monet Viveros PO Box diet [email or web address] Medical K, 700 1522, weeks gestation [facility], of , [facility] Dr MCKEON, 120, Sly 120, [id number], Clifford Horton, LINDA, LINDA, tel:+ [phone]. , [place]. tel: tel: [phone] Horton Gestational Daren-0 Viveros Referring In Womens Ultrasound diabetes mellitus 4-201 Monet. Provider: Health PA, in , 8 700 Monet Viveros PO Box diet [id number] Medical K, 700 1522, [facility] gestation [facility], of , [facility] Dr MCKEON, 120, Sly 120, [id number], Clifford Horton, LINDA, LINDA, tel:+ [phone]. , [place]. tel: tel: [phone] Horton Encounter for May-2 Viveros Referring In Womens suprvsn of normal 3-201 Monet. Provider: Health PA, , third 8 700 Monet Viveros PO Box [email or web address] weeks Medical K, 700 1522, gestation of [facility], , [facility] Dr MCKEON, 120, Sly 120, [id number], Clifford Horton, LINDA MCKEON, tel:+ [phone]. , [place]. tel: tel: [phone] Horton Gestational May-2 Viveros Referring In Womens diabetes mellitus 2-201 Monet. Provider: Health PA, in , 8 700 Monet Viveros PO Box diet [email or web address] Medical K, 700 1522, weeks gestation [facility], of , [facility] Dr MCKEON, 120, Sly 120, [id number], Clifford Horton, LINDA, LINDA, tel:+ [phone]. , [place]. tel: tel: [phone] Horton May-2 Viveros In Womens 1-201 Monet. Health PA, 8 700 PO Box Medical 1522, [place], , [facility] [place], 120, [id number], [place], [place] MCKEON, tel:[phone] , [place]. tel: [phone] Jaime Horton Encounter for Apr-2 Viveros Referring In Womens suprvsn of normal 4-201 Monet. Provider: Mendy ACEVEDO, , second 8 700 Monet Viveros PO Box [email or web address] weeks Medical , 700 1522, gestation of [facility], Dr, [facility] Dr MCKEON, 120, Sly 120, [id number], Clifford [place], [place] LINDA MCKEON, tel:[phone]. , [place]. tel: tel: [phone] Jaime Horton Oth infect w sexl Mar-2 Viveros Referring In Womens mode of transmiss 7-201 Monet. Provider: Mendy ACEVEDO, comp preg, second 8 700 Monet Viveros PO Box triEncounter for [facility], 700 1522, suprvsn of normal [facility], , second Dr, [facility] Dr MCKEON, [email or web address] weeks 120, Sly 120, , gestation of Clifford [place], [place] LINDA, LINDA, tel:[phone]. , [place]. tel: tel: [phone] Jaime Horton Encounter for Feb-2 Viveros Referring In Womens suprvsn of normal 7-201 Monet. Provider: Mendy ACEVEDO, , second 8 700 Monet Viveros PO Box trimesterEncounte Medical K, 700 1522, r For [facility], Screening For Dr, [facility] Dr MCKEON, [id number] 120, Sly 120, [id number], weeks gestation Clifford [place], [place] of LINDA MCKEON, tel:[phone]. , [place]. tel: tel: [phone] Jaime Horton Encounter for Jeferson-3 Viveros Referring In Womens suprvsn of normal 0-201 Monet. Provider: Mendy ACEVEDO, , first 8 700 Monet Viveros PO Box [email or web address] weeks Medical , 700 1522, gestation of [facility], , [facility] Dr MCKEON, 120, Sly 120, , Clifford Horton, [place], [place], tel: [phone]. , [place]. tel: tel: [phone] Associates Clifford Encounter for Jeferson-0 Viveros Referring In Womens suprvsn of normal 2-201 Monet. Provider: Health KRISTINA, , first 8 Monet Viveros PO Box trimesterLess Medical , 700 1522, than 8 weeks [facility], gestation of Dr, [facility] Dr MCKEON, 120, Sly 120, , Clifford [place], [place], [place], tel: [phone]. , [place]. tel: tel: [phone] Associates Clifford Irregular Menses Dec-2 Viveros In Womens 1-201 Monet. Health KRISTINA, 7 PO Box Medical 1522, [place], , [place]ly [place], 120, [id number], [place], [place], tel: [phone] , [place]. tel: [phone] Jaime Horton Polycystic Sep- Viveros Referring In Womens ovarian 3-201 Monet. Provider: Mendy ACEVEDO, syndromeEncounter 7 700 Monet Viveros PO Box for oth general Medical , 700 1522, cnsl and advice [facility], on , [facility] Dr MCKEON, procreationEncoun 120, Sly 120, [id number], ter for Clifford [place], test, result [place] MCKEON, tel: negative [phone]. , [place]. tel: tel: [phone] Jaime Horton Secondary Aug-2 Viveros Referring In Womens oligomenorrheaSec 2-201 Monet. Provider: Mendy ACEVEDO, ondary 7 700 Monet Viveros PO Box oligomenorrheaAbn Medical , 700 1522, ormal weight [facility], gainPap Smear , [facility] Dr MCKEON, Screening, 120, Sly 120, [id number], CervixEncounter Clifford [place], for oth general [place], [place], tel: cnsl and advice [phone]. on procreation , [place]. tel: tel: [phone] Associates Clifford Mar-2 [place] In Womens 8-200 [place]. Health [place], 8 700 PO [place] Medical 1522, Center Dr Lj, [place], 120, [id number], [place], [place], tel: [phone] , [place]. tel: [phone] Family History Family Member Diagnosis Age At [...] Source: Other Provider Influenza, injectable, completed Note: [facility] quadrivalent, preservative free, 3 Employee ; Source: Other yrs or older Provider Payers Payer name Insurance type Covered green party ID Authorization(s) [facility] [id number] [facility] Out Of State [id number] Social History Type Description Quantity Date Captured Alcohol Use Details No Caffeine Use Details Unknown Tobacco Use Status Unknown Smoking Status Never smoker Vital Signs Date / Height Weight BMI Pulse Blood Temperature Respiratory Body Head BMI Time: Rate Pressure Rate Surface Circumference percentile Area 230.30 41.9 129/ lbs 8 mm[Hg] 3:56 kg/m PM eter (2) Chief Complaint And [...] Order HIV 1/0/2 Ag/Ab with Reflex Ordered ([id number]) Future Order: Lab Order Obstetric Panel With Ordered Fourth-generation HIV ([id number]) Future Order: Lab Order hCG,Beta Subunit, Qnt, Serum Ordered ([id number]) Future Order: Radiology Order Ultrasound OB Follow-up ([id number]) Ordered Future Order: Radiology Order Biophysical Profile without NST Ordered ([id number]) Future Order: Radiology Order Ultrasound OB Follow-up ([id number]) Ordered Date Type Problem Goal Intervention Status [...]
--- OUTSIDE RECORDS SUMMARY | 2017-10-13 06:28 | External Medical Summary | Continuity of Care Document ---
:1985 Author Organization [email or web address] [place] Address [address] [place], [place] [address] Phone Care Team Providers Name Role Phone Yanni Rizzo APRN Unavailable Unavailable Allergies, Adverse Reactions, Alerts Substance Reaction Severity Status No Known Drug Allergies Unknown Active Medications Medication Instructions Dosage Effective Dates Status Comments (start - stop) Zoloft 50 mg take 1 tablet by 50 MG - Active tablet oral route every day ibuprofen 200 mg take 4 tablet by 800 MG - Active tablet oral route every 8 hours as needed with food as needed Provera 10 mg take 1 tablet by 10 MG - No Longer tablet oral route every Active day Problems Condition Effective Dates (start - stop) Clinical Status Secondary oligomenorrhea Secondary oligomenorrhea Abnormal weight gain Pap Smear Screening, Cervix Encounter for [facility] and - advice on procreation Procedures Procedure Date [place]patient [place] [facility] [place] handling/transport Results Test Name Date and Time Measure Units Reference Range Abnormal Flag Comments Panel Description: Pap Smear With HPV Reflex If ASCUS Document Advance Directives Directive Yes / No Effective Date File Name Unknown Encounters Encounter Practice Location Reason(s) Diagnoses Date Provider Care Team Description For Visit Members Office/outpa [facility] [place] late Secondary Viveros Referring tient In Womens menses oligomenorrheaSecon 2-201 Monet. Provider: visit,est, Health PA, (chief jessica 7 700 Monet Viveros mod PO Box complaint) oligomenorrheaAbnor Medical K, 700 1522, mal weight gainPap [facility], Smear Screening, , [address] MCKEON, CervixEncounter for 120, Sly 120, [id number], [facility] cnsl [place], and advice on [place], [place], tel: procreation [phone]. , . tel: tel: [phone] [facility] [place] Mar-2 [place] In Womens 8-200 [place]. Health [place], 8 700 PO [facility] [address], [place], 120, [id number], [facility] [place] [place], tel: [phone] , . tel: [phone] Family History Family Member Diagnosis Age At [...] Congenital Anomaly Immunizations Vaccine Date Status Comments Unknown Payers Payer name Insurance type Covered libertarian ID Authorization(s) BCBS Out Of [facility] [id number] Social History Type Description Quantity Date Captured Alcohol Use Details No Caffeine Use Details No Tobacco Use Status Never smoked tobacco Smoking Status Never smoker Vital Signs Date / Height Weight BMI Pulse Blood Temperature Respiratory Body Head BMI Time: Rate Pressure Rate Surface Circumference percentile Area 232.10 100 132/80 -2017 lbs /min mm[Hg] 10:30 AM Chief Complaint And Reason For Visit Most recent encounter only, dated '11/02/2016 10:30'. late menses (chief complaint). Description: She stopped her OCPs 2 years ago to try for . However, she participated in a 3 month study for Nuvaring about a year ago. Her menses have been regular and normal until the last few months, which have been 7 -14 days late. Her LMP was 09/16/16. No galactorrhea or hirsutism. Her weight is up 35# in the last 2 years. Reason For Referral Reason For Referral Unknown Plan Of Care Date Type Action Status Goal Lifestyle education regarding diet completed Appointment Huong Herrera BOOKED Date Type Problem Goal Intervention Status Start Date Unknown. History Of Present Illness Encounter Date Complaint History Of Present Illness late menses She stopped her OCPs 2 years ago to try for . However, she participated in a 3 month study for Nuvaring about a year ago. Her menses have been regular and normal until the last few months, which have been 7-14 days late. Her LMP was 09/16/16. No galactorrhea or hirsutism. Her weight is up 35# in the last 2 years. Functional Status Encounter Date Functional Assessment Cognitive Assessment Unknown Medications Administered Medication Instructions Dosage Effective Dates (start - stop) Status Comments Drug Treatment Unknown Instructions Date Instruction Additional Information Giving encouragement to exercise Related to Body mass index 33.0- 33.9 Lifestyle education regarding diet Related to Body mass index 33.0-33.9
--- OUTSIDE RECORDS SUMMARY | 2017-10-13 06:28 | External Medical Summary | Continuity of Care Document ---
:1984 Author Organization [facility] [place] Address [address] [place], [place] [address] Phone Care Team Providers Name Role Phone Yanni Rizzo APRN Unavailable Unavailable Allergies, Adverse Reactions, Alerts Substance Reaction Severity Status No Known Drug Allergies Unknown Active Medications Medication Instructions Dosage Effective Dates Status Comments (start - stop) azithromycin 500 mg take 2 tablet by - Active tablet oral route once FOLIC ACID (unknown - Active strength) 28 mg take 1 tablet by Not Available - Active iron-800 mcg tablet oral route every day Problems Condition Effective Dates (start - stop) Clinical Status Irregular Menses Encounter for suprvsn of normal - , first trimester Less than 8 weeks gestation of - Polycystic ovarian syndrome Encounter for ot general cnsl and advice on procreation Encounter for test, result - negative Secondary oligomenorrhea Secondary oligomenorrhea Abnormal weight gain Pap Smear Screening, Cervix Encounter for ot general cnsl and - advice on procreation Procedures Procedure Date Unknown Results Test Name Date and Time Measure Units Reference Range Abnormal Flag Comments Unknown Advance Directives Directive Yes / No Effective Date File Name Unknown Encounters Encounter Practice Location Reason(s) Diagnoses Date Provider Care Team Description For Visit Members Jaime Horton Mar- Viveros In [facility] 4-201 Monet. Health [place], 8 700 PO [facility] [address] [address] L[address], [facility] [place], 120, [id number], [facility] [place], tel:[phone] , [place]. tel:[phone] Jaime [place] Encounter for Viveros Referring In [facility] suprvsn of normal 2-201 [employer]. Provider: Mendy ACEVEDO, , first 8 700 Monet Viveros PO Box trimesterLess than Medical K, 700 1522, [address] [facility], of , [facility] Dr MCKEON, 120, Sly 120, [id number], [place], [place], [place], tel:[phone]. , [place]. tel: tel: [phone] [facility] [place] Irregular Menses Dec-2 Viveros In Womens 1-201 Monet. Mendy ACEVEDO, 7 700 PO Box Medical [address], [address] Lj, [facility] [place], 120, [id number], [place], [place], tel: [phone] , [place]. tel: [phone] [facility] Polycystic ovarian Sep-1 Viveros Referring In Womens syndromeEncounter 3-201 Monet. Provider: Mendy ACEVEDO, for ot general 7 700 Monet Viveros PO Box cnsl and advice on Medical , 700 15[address], procreation[address] [facility], for , [facility] Dr MCKEON, test, result 120, Sly 120, [id number], negative [place], [place] MCKEON, tel: [phone]. , [place]. tel: tel: [phone] [facility] Secondary Aug-2 Viveros Referring In Womens oligomenorrheaSecon 2-201 Monet. Provider: jessica Salinas 7 700 Monet Viveros PO Box oligomenorrheaAbnor Medical , 700 1522, mal weight gainPap [facility], Smear Screening, , [facility] Dr MCKEON, CervixEncounter for 120, Sly 120, [id number], oth general cnsl [place], and advice on [place]ON, tel: procreation [phone]. , [place]. tel: tel: [phone] Jaime H[place] Mar-2 [place] In Womens 8-200 L[place]. Mendy ACEVEDO, 8 700 PO Box Medical [address], [address] Lj, [facility], 120, [id number], [facility] [place], tel:[phone] , [place]. tel:[phone] Family History Family Member Diagnosis Age At [...] Unknown Payers Payer name Insurance type Covered republican ID Authorization(s) [facility] Out Of [facility] [id number] [facility] [place] [id number] Social History Type Description Quantity Date Captured [...] Status Goal Lifestyle education regarding diet completed Goal Lifestyle education regarding diet completed Appointment Huong Herrera BOOKED Future Order: Lab Order hCG,Beta Subunit, Qnt, Serum ([id number]) Ordered Future Order: Lab Order HIV 1/0/2 Ag/Ab with Reflex ([id number]) Ordered Future Order: Lab Order Obstetric Panel With Fourth-generation Ordered HIV ([id number]) Date Type Problem Goal Intervention Status Start [...]
--- OUTSIDE RECORDS SUMMARY | 2017-10-13 06:28 | External Medical Summary | Continuity of Care Document ---
:1984 Author Organization [facility] Address [address] [place], [place] [address] Phone Care Team Providers Name Role Phone Yanni Rizzo APRN Unavailable Unavailable Allergies, Adverse Reactions, Alerts Substance Reaction Severity Status No Known Drug Allergies Unknown Active Medications Medication Instructions Dosage Effective Dates Status Comments (start - stop) oseltamivir 75 mg take 1 capsule by 75 MG - Active capsule oral route every day FOLIC ACID (unknown - Active strength) 28 mg take 1 tablet by Not Available - Active iron-800 mcg tablet oral route every day Problems Condition Effective Dates (start - stop) Clinical Status Encounter for suprvsn of normal - , [...] and - advice on procreation Irregular Menses Procedures Procedure Date OB Visit No Charge Results Test Name Date and Time Measure Units Reference Range Abnormal Flag Comments Unknown Advance Directives Directive Yes / No Effective Date File Name Unknown Encounters Encounter Practice Location Reason(s) Diagnoses Date Provider Care Team Description For Visit Members [facility] Apr- Viveros In [facility] 2-201 [facility], 8 700 PO Box Medical [address], [address] [address] Lj, [facility] [place], 120, [id number], [facility] [place], tel:[phone] , [place]. tel: [phone] Jaime H[place] Encounter for Mar-3 Viveros Referring In Womens suprvsn of normal 0-201 Monet. Provider: Mendy ACEVEDO, , first 8 700 Monet Viveros PO Box [email or web address] weeks Medical K, 700 1522, gestation of [facility] Lj, , [facility] Dr MCKEON, 120, Sly 120, [id number], [place], [place], [place], tel: [phone]. , [place]. tel: tel: [phone] [facility] Encounter for Mar-0 Viveros Referring In Womens suprvsn of normal 2-201 Monet. Provider: Mendy ACEVEDO, , first 8 700 Monet Viveros PO Box trimesterLess than Medical K, 700 1522, 8 weeks gestation [facility] Lj, of , [facility] Dr MCKEON, 120, Sly 120, , [place], [place], [place], tel: [phone]. , [place]. tel: tel: [phone] [facility] Irregular Menses Dec-2 Viveros In Womens 1-201 Monet. Mendy ACEVEDO, 7 700 PO Box Medical [address], [place] Lj, , [place]ly MCKEON, 120, [id number], [place], [place], tel: [phone] , [place]. tel: [phone] Jaime H[place] Polycystic ovarian Sep-1 Viveros Referring In Womens syndromeEncounter 3-201 Monet. Provider: Health KRISTINA, for oth general 7 700 Monet Viveros PO Box cnsl and advice on Medical K, 700 1522, procreationEncounte [facility] Lj, for , [facility] Dr MCKEON, test, result 120, Sly 120, [id number], negative [place], [place], [place], tel: [phone]. , [place]. tel: tel: [phone] Jaime H[place] Secondary Aug-2 Viveros Referring In Womens oligomenorrheaSecon 2-201 Monet. Provider: jessica Salinas 7 700 Monet Viveros PO Box oligomenorrheaAbnor Medical K, 700 1522, mal weight gainPap [place], Smear Screening, , [facility] [address] Dr MCKEON, CervixEncounter for 120, Sly 120, , oth general cnsl [place], and advice on [place], [place], tel: procreation [phone]. , [place]. tel: tel: [phone] [facility] Mar-2 [place] In Womens 8-200 [place]. Mendy ACEVEDO, 8 700 PO Box Medical [address], [address] [address] Lj, [facility] [place], 120, [id number], [facility] [place], tel: [phone] , . tel: [phone] Family History Family Member Diagnosis Age At [...] Congenital Anomaly Immunizations Vaccine Date Status Comments Influenza, injectable, completed Note: [facility] quadrivalent, preservative free, 3 Employee ; Source: Other yrs or older Provider Payers Payer name Insurance type Covered constitution party ID Authorization(s) [facility] [id number] BCBS Out Of State [id number] Social History Type Description Quantity Date Captured Alcohol Use Details No Caffeine Use Details Unknown Tobacco Use Status Unknown Smoking Status Never smoker Vital Signs Date / Height Weight BMI Pulse Blood Temperature Respiratory Body Head BMI Time: Rate Pressure Rate Surface Circumference percentile Area 229.80 41.8 -2018 lbs 9 2:35 kg/m PM eter (2) 229.80 41.8 143/82 -2018 lbs 9 mm[Hg] 2:36 kg/m PM eter (2) 0 2:32 kg/m PM eter (2) Chief Complaint And Reason For Visit Unknown Chief Complaint And Reason For Visit Reason For Referral Reason For Referral Unknown Plan Of Care Date Type Action Status Goal Lifestyle education regarding diet completed Goal Lifestyle education regarding diet completed Appointment Huong Herrera BOOKED Future Order: Lab Order HIV 1/0/2 Ag/Ab with Reflex ([id number]) Ordered Future Order: Lab Order Obstetric Panel With Fourth-generation Ordered HIV ([id number]) Future Order: Lab Order hCG,Beta Subunit, Qnt, Serum ([id number]) Ordered Date Type Problem Goal Intervention Status [...]
--- OUTSIDE RECORDS SUMMARY | 2017-10-13 06:28 | External Medical Summary | Continuity of Care Document ---
:1984 Author Organization [facility] Address [address] [place], [place] [address] Phone Care Team Providers Name Role Phone [...] insulin controlled 34 weeks gestation of - Oth infect w [...] weeks gestation of - Procedures Procedure Date Ultrasnd preg uterus, flwup/repeat Results Test Name Date and Time Measure Units Reference Range Abnormal Flag Comments Unknown Advance Directives Directive Yes / No Effective Date File Name Unknown Encounters Encounter Practice Location Reason(s) Diagnoses Date Provider Care Team Description For Visit Members [facility] [place] Gestational Viveros Referring In Womens diabetes in 6-201 Monet. Provider: Health PA, , 8 700 Monet Viveros PO Box insulin Medical K, 700 1522, [id number] [facility], weeks gestation , [facility] Dr MCKEON, of 120, Sly 120, , [place], [place], [place], tel: [phone]. , [place]. tel: tel: [phone] Jaime Horton Gestational Rubio-1 Viveros Referring In Womens Ultrasound diabetes in [place]. Provider: Health KRISTINA, , 8 700 Monet Viveros PO Box insulin Medical K, 700 1522, [id number] [facility], weeks gestation , [facility] Dr MCKEON, of 120, Sly 120, , [place], [place], [place], tel:[phone]. , [place]. tel: tel: [phone] Jaime Horton Gestational Rubio-0 Viveros Referring In Womens diabetes in [place]. Provider: Health KRISTINA, , 8 700 Monet Viveros PO Box insulin Medical K, 700 1522, [email or web address] [facility], weeks gestation , [facility] Dr MCKEON, of 120, Sly 120, , [place], [place], [place], tel:[phone]. , [place]. tel: tel: [phone] Jaime Horton Gestational Rubio-0 Viveros Referring In Womens Ultrasound diabetes in [place]. Provider: Health KRISTINA, , 8 700 Monet Viveros PO Box insulin Medical K, 700 1522, [email or web address] [facility], weeks gestation , [facility] Dr MCKEON, of 120, Sly 120, , [place], [place], [place], tel:[phone]. , [place]. tel: tel: [phone] Jaime Horton Gestational Rubio-0 Viveros Referring In Womens diabetes in [place]. Provider: Health KRISTINA, , 8 700 Monet Viveros PO Box insulin Medical K, 700 1522, [email or web address] [facility], weeks gestation , [facility] Dr MCKEON, of 120, Sly 120, [id number], [place], [place], [place], tel: [phone]. , [place]. tel: tel: [phone] Jaime Horton Gestational Rubio-0 Viveros Referring In Womens Ultrasound diabetes in 2-201 Monet. Provider: Health PA, , 8 700 Monet Viveros PO Box insulin Medical K, 700 1522, [facility], weeks gestation , [facility] Dr MCKEON, of 120, Sly 120, , [place], [place], [place], tel: [phone]. , [place]. tel: tel: [phone] Jaime Horton Gestational Daren-1 Viveros Referring In Womens diabetes mellitus 8-201 Monet. Provider: Health PA, in , 8 700 Monet Viveros PO Box diet [id number] Medical K, 700 1522, weeks gestation [facility], of , [facility] Dr MCKEON, 120, Sly 120, [id number], [place], [place], [place], tel: [phone]. , [place]. tel: tel: [phone] Jaime Horton Gestational Daren-1 Viveros Referring In Womens diabetes mellitus 1-201 Monet. Provider: Health PA, in , 8 700 Monet Viveros PO Box diet [id number] Medical K, 700 1522, weeks gestation [facility] Lj, of , [facility] Dr MCKEON, 120, Sly 120, [id number], [place], [place], [place], tel: [phone]. , [place]. tel: tel: [phone] Jaime Horton Gestational Daren-0 Viveros Referring In Womens diabetes mellitus 4-201 Monet. Provider: Health PA, in , 8 700 Monet Viveros PO Box diet [email or web address] Medical K, 700 1522, weeks gestation [facility], of , [facility] Dr MCKEON, 120, Sly 120, [id number], [place], [place], [place], tel: [phone]. , [place]. tel: tel: [phone] Jaime Horton Gestational Daren-0 Viveros Referring In Womens Ultrasound diabetes mellitus 4-201 Monet. Provider: Health PA, in , 8 700 Monet Viveros PO Box diet [email or web address] [facility], 700 1522, weeks gestation [facility], of , [facility] Dr MCKEON, 120, Sly 120, [id number], [place], [place], [place], tel:[phone]. , [place]. tel: tel: [phone] [place] Encounter for May-2 Viveros Referring In Womens suprvsn of normal 3-201 Monet. Provider: Health PA, , third 8 700 Monet Viveros PO Box [email or web address] weeks [facility], 700 1522, gestation of [facility], , [facility] Dr MCKEON, 120, Sly 120, , [place], [place], [place], tel: [phone]. , [place]. tel: tel: [phone] [place] Gestational May-2 Viveros Referring In Womens diabetes mellitus 2-201 Monet. Provider: Health PA, in , 8 700 Monet Viveros PO Box diet [email or web address] Medical , 700 1522, weeks gestation [facility], of , [facility] Dr MCKEON, 120, Syl 120, [id number], [place], [place], [place], tel:[phone]. , [place]. tel: tel: [phone] Horton May-2 Viveros In Womens 1-201 Monet. Health PA, 8 700 PO Box Medical [address], [address] [place], 120, [id number], [place], [place], tel: [phone] , [place]. tel: [phone] Jaime Horton Encounter for Apr-2 Viveros Referring In Womens suprvsn of normal 4-201 Monet. Provider: Mendy ACEVEDO, , second 8 700 Monet Viveros PO Box [email or web address] weeks Medical , 700 1522, gestation of [facility], , [facility] Dr MCKEON, 120, Sly 120, [id number], [place], [place], tel: [phone]. , [place]. tel: tel: [phone] Jaime Horton Oth infect w sexl May-2 Viveros Referring In Womens mode of transmiss 7-201 Monet. Provider: Mendy ACEVEDO, comp preg, second 8 700 Monet Viveros PO Box triEncounter for [facility], 700 1522, suprvsn of normal [facility], , second Dr, [facility] Dr MCKEON, [email or web address] weeks 120, Sly 120, , gestation of [place], [place], tel:[phone]. , [place]. tel: tel: [phone] Jaime Horton Encounter for Apr- Viveros Referring In Womens suprvsn of normal 7-201 Monet. Provider: Mendy ACEVEDO, , second 8 700 Monet Viveros PO Box [facility] , 700 1522, r For [facility], Screening For Dr, [facility] Dr MCKEON, [id number] 120, Sly 120, [id number], weeks gestation [place], [place] of [place]ON, tel: [phone]. , [place]. tel: tel: [phone] Jaime Horton Encounter for Mar- Viveros Referring In Womens suprvsn of normal 0-201 Monet. Provider: Mendy ACEVEDO, , first 8 700 Monet Viveros PO Box [email or web address] weeks Medical , 700 1522, gestation of [facility], , [facility] Dr MCKEON, 120, Sly 120, [id number], [place], [place], tel: [phone]. , [place]. tel: tel: [phone] [facility] [place] Encounter for Mar-0 Viveros Referring In Womens suprvsn of normal 2-201 Monet. Provider: Health KRISTINA, , first 8 700 Monet Viveros PO Box trimesterLess Medical K, 700 1522, than 8 weeks [facility] Lj, gestation of Dr, [facility] Dr MCKEON, 120, Sly 120, , [place], [place], [place], tel: [phone]. , [place]. tel: tel: [phone] [facility] [place] Irregular Menses Dec- Viveros In Womens 1-201 Monet. Health KRISTINA, 7 700 PO Box Medical [address], [place] [address], , Sly [place], 120, [id number], [place], [place], tel: [phone] , [place]. tel: [phone] Jaime Horton Polycystic Sep- Viveros Referring In Womens ovarian 3-201 Monet. Provider: Health KRISTINA, syndromeEncounter 7 700 Monet Viveros PO Box for ot general Medical K, 700 1522, cnsl and advice [facility] [address], [facility] Dr MCKEON, procreationEncoun 120, Sly 120, [id number], ter for [place], test, result [place], [place], tel: [phone]. , [place]. tel: tel: [phone] Jaime H[place] Secondary Aug- Viveros Referring In Womens oligomenorrheaSec 2-201 Monet. Provider: Health KRISTINA, ondary 7 700 Monet Viveros PO Box oligomenorrheaAbn Medical K, 700 1522, ormal weight [facility] David [place] Smear , [facility] Dr MCKEON, Screening, 120, Sly 120, , CervixEncounter [place], [place] for oth general [place], [place], tel: cnsl and advice [phone]. [phone] on procreation , [place]. tel: tel: [phone] [facility] [place] Mar-2 [place] In Womens 8-200 Ledy. [facility], 8 700 PO [facility] 1522, [address] Lj, [facility] [place], 120, [id number], [facility] [place], tel: [phone] , [place]. tel: [phone] Family History Family Member Diagnosis Age At [...] Source: Other Provider Influenza, injectable, completed Note: [facility] quadrivalent, preservative free, 3 Employee ; Source: Other yrs or older Provider Payers Payer name Insurance type Covered republican ID Authorization(s) [employer] [id number] BCBS Out Of State [id number] Social History Type Description Quantity Date Captured [...] Huong Herrera BOOKED Future Order: Radiology Order Ultrasound OB Follow-up ([id number]) Ordered Future Order: Lab Order HIV 1/0/2 Ag/Ab with Reflex Ordered ([id number]) Future Order: Lab Order Obstetric Panel With Ordered Fourth-generation HIV ([id number]) Future Order: Lab Order hCG,Beta Subunit, Qnt, Serum Ordered ([id number]) Future Order: Radiology Order Ultrasound OB Follow-up ([id number]) Ordered Future Order: Radiology Order Biophysical Profile without NST Ordered ([id number]) Future Order: Radiology Order Biophysical Profile without NST Ordered ([id number]) Date Type Problem Goal Intervention Status Start [...]
--- OUTSIDE RECORDS SUMMARY | 2017-10-13 06:28 | External Medical Summary | Continuity of Care Document ---
:1985 Author Organization [facility] Address [address] [place], [place] [id number] Phone Care Team Providers Name Role Phone [...] on procreation Irregular Menses Procedures Procedure Date No Charge Sonogram Initial OB Visit No Charge - WELDER GAS TUNGSTEN ARC Infct antign, chlamydia trac, ampl Neisseria Gonorrhoeae, Amplification Results Test Name Date and Time Measure Units Reference Range Abnormal Flag Comments Panel Description: CHLAMYDIA/N. GONORRHOEAE RNA, TMA CHLAMYDIA DETECTED NOT DETECTED A A positive CT or NG TRACHOMATIS RNA, 15:34:00 Nucleic Acid TMA Amplification Test(NAAT) result should be interpreted in conjunctionwith other laboratory and clinical data available tothe clinician. If clinically indicated, further testing can be performed on the same sample usingan alternate molecular target. To order alternatetarget test use 31289 (C. trachomatis) [place] 99118 (N. gonorrhoeae). NEISSERIA NOT DETECTED NOT DETECTED N GONORRHOEAE RNA, 15:34:00 TMA [id number] SEE NOTE This test was 15:34:00 performed using the APTIMA COMBO2 Assay([employer] The analytical performance characteristics of this assay, when used to test SurePath specimens havebeen determined by [facility]. Test performed at [facility] [id number] [place] [address]Udamgqfr: LUIS LOWE DO,MPH Advance Directives Directive Yes / No Effective Date File Name Unknown Encounters Encounter Practice Location Reason(s) Diagnoses Date Provider Care Team Description For Visit Members Jaime Horton Mar-0 Viveros In Womens 4-201 Monet. Mendy ACEVEDO, 8 700 [address], [facility] [place], 120, [id number], [facility], tel:[phone] , [place]. tel: [phone] [facility] [place] Encounter for Mar- Viveros Referring In Women suprvsn of normal 2-201 Monet. Provider: Mendy ACEVEDO, , first 8 700 Monet Viveros PO Box trimesterLess than Medical [place], 700 1522, 8 weeks gestation [place], of , [facility] [place], 120, Sly 120, [id number], [place], [place], [facility], [place], tel:+ [phone]. , [place]. tel:+ tel: [phone] [facility] Irregular Menses Feb- Viveros In Womens 1-201 Monet. Mendy ACEVEDO, 7 700 [address], [address], [facility] [place], 120, [id number], [facility], tel:[phone] , [place]. tel:[phone] [facility] Polycystic ovarian Sep- Viveros Referring In Womens syndromeEncounter 3-201 Monet. Provider: Mendy ACEVEDO, for oth general 7 700 Monet Viveros PO Box cnsl and advice on Medical K, 700 1522, procreationEncounte [facility] Lj, r for , [facility] Dr MCKEON, test, result 120, Sly 120, [id number], negative [place], [place], [place], tel:+ [phone]. , [place]. tel: tel: [phone] [facility] Villanueva Oct- Viveros Referring In Womens oligomenorrheaSecon 2-201 Monet. Provider: Health jessica ACEVEDO 7 700 Monet Viveros PO Box oligomenorrheaAbnor Medical [place], 700 1522, mal weight gainPap [facility], Smear Screening, , [facility] Dr MCKEON, CervixEncounter for 120, Sly 120, [id number], oth general cnsl [place], and advice on [place] MCKEON, tel: procreation [phone]. , [place]. tel: tel: [phone] Jaime H[place] May-2 [place] In Womens 8-200 Ledy. Health [place], 8 700 [address], Sly [place], 120, [id number], [place], [place], tel: [phone] , [place]. tel: [phone] Family History Family Member Diagnosis Age At [...] Unknown Payers Payer name Insurance type Covered constitution party ID [facility](s[facility] [id number] [place] Out Of State [id number] Social History Type Description Quantity Date Captured Alcohol Use Details No Caffeine Use Details No Tobacco Use Status Never smoked tobacco Smoking Status Never smoker Vital Signs Date / Height Weight BMI Pulse Blood Temperature Respiratory Body Head BMI Time: Rate Pressure Rate Surface Circumference percentile Area 231.50 42.2 145/95 2018 lbs 0 mm[Hg] 2:33 kg/m PM eter (2) Chief Complaint And Reason For Visit Unknown Chief Complaint And Reason For Visit Reason For Referral Reason For Referral Unknown Plan Of Care Date Type Action Status Goal Lifestyle education regarding diet completed Goal Lifestyle education regarding diet completed Appointment Huong Herrera BOOKED Future Order: Lab Order HIV 1/0/2 Ag/Ab with Reflex ([id number]) Ordered Future Order: Lab Order Obstetric Panel With Fourth-generation Ordered HIV ([id number]) Future Order: Lab Order hCG,Beta Subunit, Qnt, Serum ([id number]) Ordered Date Type Problem Goal Intervention Status [...]
--- OUTSIDE RECORDS SUMMARY | 2017-10-13 06:28 | External Medical Summary | Continuity of Care Document ---
:1984 Author Organization [facility] Address [address] [place], [place] [address] Phone Care Team Providers Name Role Phone Yanni Rizzo APRN Unavailable Unavailable Allergies, Adverse Reactions, Alerts Substance Reaction Severity Status No Known Drug Allergies Unknown Active Medications Medication Instructions Dosage Effective Status Comments Dates (start - stop) OneTouch Verio test 1 Drop by Not Available - Active ICD 10: strips Intradermal route O24.410 4 times every day fasting and postprandial OneTouch Verio - Active ICD 10: System O24.410 Lancets,Ultra use by Not Available - Active ICD 10: Thin Intradermal route O24.410 4 times every day FOLIC ACID - Active (unknown strength) 28 mg take 1 tablet by Not Available - Active iron-800 mcg oral route every tablet day amoxicillin 500 take 1 capsule by 500 MG - No Longer mg capsule oral route every Active 8 hours Problems Condition Effective Dates (start - stop) Clinical Status Encounter for suprvsn of normal - , third trimester 28 weeks gestation of - Encounter for suprvsn [...] diet controlled 30 weeks gestation of - Oth infect w [...] - Malformations 15 weeks gestation of - Procedures Procedure Date OB Visit 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 Provider: Mendy ACEVEDO, in , 8 700 Monet Viveros PO Box diet [id number] Medical K, 700 1522, weeks gestation [place], of , [facility] [place], 120, [facility] 120, , [place] [facility], [place], tel: [phone]. , [place]. tel: tel: [phone] Jaime H[place] Daren-0 Viveros In Womens 7-201 Monet. Health [place], 8 700 [address], [facility], Sly [place], 120, [id number], [facility], tel:[phone] , [place]. tel: [phone] Jaime H[place] Gestational Daren-0 Viveros Referring In Womens diabetes mellitus 4-201 Monet. Provider: Health KRISTINA, in , 8 700 Monet Viveros PO Box diet [id number] Medical K, 700 1522, weeks gestation [facility], of , [facility] Dr MCKEON, 120, Sly 120, [id number], [place], [place], [place], tel:[phone]. , [place]. tel: tel: [phone] Jaime H[place] Gestational Daren-0 Viveros Referring In Womens Ultrasound diabetes mellitus 4-201 Monet. Provider: Health KRISTINA, in , 8 700 Monet Viveros PO Box diet [email or web address] Medical K, 700 1522, weeks gestation [facility], of , [facility] Dr MCKEON, 120, Sly 120, [id number], [place], [place], [place], tel:+ [phone]. , [place]. tel: tel: [phone] Jaime Horton Encounter for May-2 Viveros Referring In Womens suprvsn of normal 3-201 Monet. Provider: Health KRISTINA, , third 8 700 Monet Viveros PO Box [email or web address] weeks Medical K, 700 1522, gestation of [facility], , [facility] Dr MCKEON, 120, Sly 120, [id number], [place], [place], [place], tel:+ [phone]. , [place]. tel: tel: [phone] Jaime Horton Gestational May-2 Viveros Referring In Womens diabetes mellitus 2-201 Monet. Provider: Health KRISTINA, in , 8 700 Monet Viveros PO Box diet [email or web address] Medical K, 700 1522, weeks gestation [facility], of , [facility] Dr MCKEON, 120, Sly 120, [id number], [place], [place], [place], tel: [phone]. , [place]. tel: tel: [phone] Jaime H[place] May-2 Viveros In Womens 1-201 Monet. Health [place], 8 700 [address], [place], , [facility] [place], 120, [id number], [place], [place], tel:[phone] , [place]. tel: [phone] Jaime H[place] Encounter for Apr-2 Viveros Referring In Womens suprvsn of normal 4-201 Monet. Provider: Mendy ACEVEDO, , second 8 700 Monet Viveros PO Box [email or web address] weeks Medical , 700 1522, gestation of [facility], Dr, [facility] Dr MCKEON, 120, Sly 120, [id number], [place], [place]DA MCKEON, tel:[phone]. , [place]. tel: tel: [phone] Jaime H[place] Oth infect w sexl Mar-2 Viveros Referring In Womens mode of transmiss 7-201 Monet. Provider: Mendy ACEVEDO, comp preg, second 8 700 Monet Viveros PO Box triEncounter for Medical K, 700 1522, suprvsn of normal [facility], , second , [facility] Dr MCKEON, [email or web address] weeks 120, Sly 120, , gestation of [place], [place] MCKEON, tel:[phone]. , [place]. tel: tel: [phone] Jaime H[place] Encounter for Feb-2 Viveros Referring In Womens suprvsn of normal 7-201 Omnet. Provider: Mendy ACEVEDO, , second 8 700 Monet Viveros PO Box trimesterEncounte Medical K, 700 1522, r For [facility], Screening For , [facility] Dr MCKEON, [id number] 120, Sly 120, [id number], weeks gestation [place], [place] of [place] MCKEON, tel:[phone]. , [place]. tel: tel: [phone] Jaime Horton Encounter for Jeferson-3 Viveros Referring In Womens suprvsn of normal 0-201 Monet. Provider: Mendy ACEVEDO, , first 8 700 Monet Viveros PO Box [email or web address] weeks Medical K, 700 1522, gestation of [facility], , [facility] Dr MCKEON, 120, Sly 120, , [place], [place], [place], tel: [phone]. , [place]. tel: tel: [phone] [facility] [place] Encounter for Jeferson-0 Viveros Referring In Womens suprvsn of normal 2-201 Monet. Provider: Health KRISTINA, , first 8 700 Monet Viveros PO Box trimesterLess Medical , 700 1522, than 8 weeks [facility], gestation of Dr, [facility] Dr MCKEON, 120, Sly 120, , [place], [place], [place], tel: [phone]. , [place]. tel: tel: [phone] [facility] [place] Irregular Menses Dec-2 Viveros In Womens 1-201 Monet. Health KRISTINA, 7 [address], [place] [address], [facility] [place], 120, [id number], [place], tel: [phone] , [place]. tel: [phone] Jaime H[place] Polycystic Sep- Viveros Referring In Womens ovarian 3-201 Monet. Provider: Mendy ACEVEDO, syndromeEncounter 7 700 Monet Viveros PO Box for oth general Medical , 700 1522, cnsl and advice [facility], on , [facility] Dr MCKEON, procreationEncoun 120, Sly 120, [id number], ter for [place], test, result [place] MCKEON, tel: [phone]. , [place]. tel: tel: [phone] Jaime H[place] Secondary Aug-2 Viveros Referring In Womens oligomenorrheaSec 2-201 Monet. Provider: Mendy ACEVEDO, ondary 7 700 Monet Viveros PO Box oligomenorrheaAbn Medical , 700 1522, or[facility] weight [facility], gainPap Smear , [facility] Dr MCKEON, Screening, 120, Sly 120, [id number], CervixEncounter [place], for oth general [place], [place], tel: cnsl and advice [phone]. on procreation , [place]. tel: tel: [phone] [facility] [place] Mar-2 [place] In Womens 8-200 Ledy. Health [place], 8 700 [address], [place] [address] Lj, [facility] [place], 120, [id number], [place], [place], tel: [phone] , . tel: [phone] Family History Family Member Diagnosis Age At [...] Date Status Comments Influenza, injectable, completed Note: [facility] quadrivalent, preservative free, 3 Employee ; Source: Other yrs or older Provider Payers Payer name Insurance type Covered alliance party ID Authorization(s) [facility] [id number] [facility] Out Of State [id number] Social History Type Description Quantity Date Captured Alcohol Use Details No Caffeine Use Details Unknown Tobacco Use Status Unknown Smoking Status Never smoker Vital Signs Date / Height Weight BMI Pulse Blood Temperature Respiratory Body Head BMI Time: Rate Pressure Rate Surface Circumference percentile Area 233.60 42.5 lbs 8 4:26 kg/m PM eter (2) Chief Complaint And [...] Order HIV 1/0/2 Ag/Ab with Reflex Ordered ([id number]) Future Order: Lab Order Obstetric Panel With Ordered Fourth-generation HIV ([id number]) Future Order: Lab Order hCG,Beta Subunit, Qnt, Serum Ordered ([id number]) Future Order: Radiology Order Ultrasound OB Follow-up ([id number]) Ordered Date Type Problem Goal Intervention Status [...]
--- OUTSIDE RECORDS SUMMARY | 2017-10-13 06:29 | External Medical Summary | Continuity of Care Document ---
:1984 Author Organization [facility] Address [address] [place], [place] [phone] Phone Care Team Providers Name Role Phone [...] on procreation Irregular Menses Procedures Procedure Date Unknown Results Test Name Date and Time Measure Units Reference Range Abnormal Flag Comments Unknown Advance Directives Directive Yes / No Effective Date File Name Unknown Encounters Encounter Practice Location Reason(s) Diagnoses Date Provider Care Team Description For Visit Members Jaime H[place] Mar-[address] [facility] 4-201 Monet. Health [place], 8 700 PO [facility] [address] [address] Lj, [facility] [place], 120, [id number], [facility] [place], tel:[phone] , [place]. tel: [phone] Jaime H[place] Encounter for Mar- Viveros Referring In [facility] suprvsn of normal 2-201 Monet. Provider: Mendy ACEVEDO, , first 8 700 Monet Viveros PO Box trimesterLess than Medical K, 700 1522, 8 weeks gestation [facility], of , [facility] Dr MCKEON, 120, Sly 120, [id number], [place], [place], [place], tel:+ [phone]. , [place]. tel: tel: [phone] [facility] [place] Irregular Menses Dec-2 Viveros In Womens 1-201 Monet. Mendy ACEVEDO, 7 700 [address], [place] [address] Lj, [facility] [place], 120, [id number], [place], tel: [phone] , [place]. tel: [phone] [facility] [place] Polycystic ovarian Sep-1 Viveros Referring In Womens syndromeEncounter 3-201 Monet. Provider: Mendy ACEVEDO, for ot general 7 700 Monet Viveros PO Box cnsl and advice on Medical , 700 1522, procreationEncounte [facility], for , [facility] Dr MCKEON, test, result 120, Sly 120, [id number], negative [place], [place], tel: [phone]. , [place]. tel: tel: [phone] [facility] [place] Secondary Aug-2 Viveros Referring In Womens oligomenorrheaSecon 2-201 Monet. Provider: jessica Salinas 7 700 Monet Viveros PO Box oligomenorrheaAbnor Medical , 700 1522, mal weight gainPap [facility], Smear Screening, , [facility] Dr MCKEON, CervixEncounter for 120, Sly 120, [id number], oth general cnsl [place], and advice on [place] MC[place], tel: procreation [phone]. , [place]. tel: tel: [phone] Jaime Horton Mar-2 [place] In Womens 8-200 Ledy. Mendy ACEVEDO, 8 700 [address], [address]j, [facility], 120, [id number], [facility] [place], tel:[phone] , [place]. tel:[phone] Family History Family Member Diagnosis Age At [...] name Insurance type Covered republican ID Authorization(s) [employer] [id number] [facility] Out Of State [id number] Social History Type Description Quantity Date Captured [...] Lab Order HIV 1/0/2 Ag/Ab with Reflex ([id number]) Ordered Future Order: Lab Order Obstetric Panel With Fourth-generation Ordered HIV ([id number]) Future Order: Lab Order hCG,Beta Subunit, Qnt, Serum ([id number]) Ordered Date Type Problem Goal Intervention Status [...]
--- OUTSIDE RECORDS SUMMARY | 2017-10-13 06:29 | External Medical Summary | Continuity of Care Document ---
:1984 Author Organization [facility] [place] Address [address] [place], [place] [address] Phone Care Team Providers Name Role Phone Yanni Rizzo APRN Unavailable Unavailable Allergies, Adverse Reactions, Alerts Substance Reaction Severity Status No Known Drug Allergies Unknown Active Medications Medication Instructions Dosage Effective Dates Status Comments (start - stop) Provera 10 mg tablet take 1 tablet by oral 10 MG - Active route every day Zoloft 50 mg tablet take 1 tablet by oral 50 MG - Active route every day ibuprofen 200 mg take 4 tablet by oral 800 MG - Active tablet route every 8 hours as needed with food as needed Problems Condition Effective Dates (start - stop) Clinical Status Polycystic ovarian syndrome Encounter for ot general cnsl and advice on procreation Encounter for test, result - negative Secondary oligomenorrhea Secondary oligomenorrhea Abnormal weight gain Pap Smear Screening, Cervix Encounter for ot general cnsl and - advice on procreation Procedures Procedure Date Office/outpatient visit,est, mod Urine test Results Test Name Date and Time Measure Units Reference Range Abnormal Flag Comments Unknown Advance Directives Directive Yes / No Effective Date File Name Unknown Encounters Encounter Practice Location Reason(s) Diagnoses Date Provider Care Team Description For Visit Members Office/outpa [facility] [place] discuss Polycystic ovarian Viveros Referring tient In Womens PCOS syndromeEncounter 3-201 Monet. Provider: visit,est, Health PA, (chief for ot general 7 700 Monet Viveros mod PO Box complaint) cnsl and advice on Medical K, 700 1522, [facility] farrah [place] for , [place], test, result 120, Sly 120, [id number], negative [place], [place], [place], tel: [phone]. , [place]. tel: tel: [phone] [facility] Aug- Viveros Referring In Womens oligomenorrheaSecon 2-201 Monet. Provider: Health jessica ACEVEDO 7 700 Monet Viveros PO Box oligomenorrheaAbnor Medical K, 700 1522, mal weight gainPap Anza Storm [place], Smear Screening, , [facility] Dr MCKEON, CervixEncounter for 120, Sly 120, , oth general cnsl [place], and advice on [place], [place], tel: procreation [phone]. , [place]. tel: tel: [phone] [facility] [place] May-2 [place] In Womens 8-200 Ledy. Health KRISTINA, 8 700 [address], [address] Lj, [facility] [place], 120, [id number], [place], tel: [phone] , [place]. tel: [phone] Family History Family Member Diagnosis Age At [...] name Insurance type Covered republican ID Authorization(s) [employer] Out Of State [id number] Social History Type Description Quantity Date Captured Alcohol Use Details Unknown Caffeine Use Details Unknown Tobacco Use Status Unknown Smoking Status Never smoker Vital Signs Date / Height Weight BMI Pulse Blood Temperature Respiratory Body Head BMI Time: Rate Pressure Rate Surface Circumference percentile Area 232.80 84 140/90 -2017 lbs /min mm[Hg] 2:04 PM Chief Complaint And Reason For Visit Most recent encounter only, dated '11/24/2016 14:00'. discuss PCOS ( chief complaint). Description: Her LMP was early September. Labs reviewed with patient- elevated free testosterone, and FSH/LH ratio reversed, consistent with PCOS. Reason For Referral Reason For Referral Unknown Plan Of Care Date Type Action Status Goal Lifestyle education regarding diet completed Goal Lifestyle education regarding diet completed Date Type Problem Goal Intervention Status Start Date Unknown. History Of Present Illness Encounter Date Complaint History Of Present Illness discuss PCOS Her LMP was early September. Labs reviewed with patient- elevated free testosterone, and FSH/LH ratio reversed, consistent with PCOS. Functional Status Encounter Date Functional Assessment Cognitive [...]
--- OUTSIDE RECORDS SUMMARY | 2017-10-13 06:29 | External Medical Summary | Continuity of Care Document ---
:1985 Author Organization [facility] Address [address] [place], [place] [id number] Phone Care Team Providers Name Role Phone Yanni Rizzo APRN Unavailable Unavailable Allergies, Adverse Reactions, Alerts Substance Reaction Severity Status No Known Drug Allergies Unknown Active Medications Medication Instructions Dosage Effective Dates Status Comments (start - stop) OneTouch Verio test 1 Drop by Not Available - Active ICD 10: strips Intradermal route O24.410 4 times every day fasting and postprandial OneTouch Verio - Active ICD 10: System O24.410 Lancets,Ultra use by Intradermal Not Available - Active ICD 10 : Thin route 4 times O24.410 every day FOLIC ACID - Active (unknown strength) 28 mg take 1 tablet by Not Available - Active iron-800 mcg oral route every tablet day Problems Condition Effective Dates (start - stop) Clinical Status Gestational diabetes mellitus in - , diet controlled 29 weeks gestation of - Encounter for suprvsn [...] Description For Visit Members Jaime Horton Gestational Aug- Viveros Referring In Womens diabetes mellitus - Monet. Provider: Health PA, in , 8 700 Monet Viveros PO Box diet [id number] Medical K, 700 1522, weeks gestation [facility] Dr MCKEON, 120, Sly 120, [id number], [place], [place], [place], tel:[phone] , [place]. tel: tel: [phone] Jaime Horton Gestational Aug- Viveros Referring In Womens diabetes mellitus - Monet. Provider: Health PA, in , 8 700 Monet Viveros PO Box diet [email or web address] Medical K, 700 1522, weeks gestation [facility] Dr MCKEON, 120, Sly 120, [id number], [place], [place], [place], tel: [phone]. , [place]. tel: tel: [phone] Jaime Horton Gestational Daren-0 Viveros Referring In Womens diabetes mellitus 4-201 Monet. Provider: Health PA, in , 8 700 Monet Viveros PO Box diet [id number] Medical K, 700 1522, weeks gestation [facility], of , [facility] Dr MCKEON, 120, Sly 120, [id number], [place], [place], [place], tel: [phone]. , [place]. tel: tel: [phone] Jaime Horton Gestational Daren-0 Viveros Referring In Womens Ultrasound diabetes mellitus 4-201 Monet. Provider: Health PA, in , 8 700 Monet Viveros PO Box diet [id number] Medical , 700 1522, weeks gestation [facility], of , [facility] Dr MCKEON, 120, Sly 120, [id number], [place], [place] MCKEON, tel: [phone]. , [place]. tel: tel: [phone] Jaime Horton Encounter for May-2 Viveros Referring In Womens suprvsn of normal 3-201 Monet. Provider: Health PA, , third 8 700 Monet Viveros PO Box [email or web address] weeks Medical K, 700 1522, gestation of [facility], , [facility] Dr MCKEON, 120, Sly 120, [id number], [place], [place] MCKEON, tel: [phone]. , [place]. tel: tel: [phone] Jaime Horton Gestational May-2 Viveros Referring In Womens diabetes mellitus 2-201 Monet. Provider: Health PA, in , 8 700 Monet Viveros PO Box diet [email or web address] Medical K, 700 1522, weeks gestation [facility], of [facility] Dr MCKEON, 120, Sly 120, [id number], [place], [place], [place], tel:[phone]. , [place]. tel: tel: [phone] Jaime Horton May-2 Viveros In Womens 1-201 Monet. Health PA, 8 700 PO Box Medical 1522, Mazon Lj, , [place], 120, [id number], [place], tel: [phone] , [place]. tel: [phone] Jaime Horton Encounter for Apr-2 Viveros Referring In Womens suprvsn of normal 4-201 Monet. Provider: Health KRISTINA, , second 8 700 Monet Viveros PO Box [id number] weeks Medical K, 700 1522, gestation of [facility] Lj, Dr, [facility] Dr MCKEON, 120, Sly 120, , [place], [place] MCKEON, tel: [phone]. , [place]. tel: tel: [phone] Jaime Horton Oth infect w sexl Mar-2 Viveros Referring In Womens mode of transmiss 7-201 Monet. Provider: Health KRISTINA, comp preg, second 8 700 Monet Viveros PO Box triEncounter for Medical K, 700 1522, suprvsn of normal [facility] Lj, , second Dr, [facility] Dr MCKEON, [email or web address] weeks 120, Sly 120, , gestation of [place], [place], LIN[place], tel: [phone]. , [place]. tel: tel: [phone] Jaime Horton Encounter for Feb-2 Viveros Referring In Womens suprvsn of normal 7-201 Monet. Provider: Health KRISTINA, , second 8 700 Monet Viveros PO Box trimesterEncounte Medical K, 700 1522, r For [facility] Lj, Screening For Dr, [facility] Dr MCKEON, [id number] 120, Sly 120, [id number], weeks gestation [place], [place] of LIN[place], LINDA, tel: [phone]. , [place]. tel: tel: [phone] Jaime Horton Encounter for Mar-3 Viveros Referring In Womens suprvsn of normal 0-201 Monet. Provider: Mendy ACEVEDO, , first 8 700 Monet Viveros PO Box [email or web address] weeks Medical K, 700 1522, gestation of [facility] Lj, , [facility] Dr MCKEON, 120, Sly 120, [id number], [place], [place], [place], tel: [phone]. , [place]. tel: tel: [phone] Jaime Horton Encounter for Mar-0 Viveros Referring In Womens suprvsn of normal 2-201 Monet. Provider: Mendy ACEVEDO, , first 8 700 Monet Viveros PO Box trimesterLess Medical K, 700 1522, than [address] [facility] Lj, gestation of Dr, [facility] Dr MCKEON, 120, Sly 120, , [place], [place], [place], tel:[phone]. , [place]. tel: tel: [phone] Jaime Horton Irregular Menses Dec-2 Viveros In Womens 1-201 Monet. Mendy ACEVEDO, 7 700 PO Box Medical 1522, Mazon Lj, , [facility] LINDA, 120, , [place], tel: [phone] , [place]. tel: [phone] Jaime Horton Polycystic Sep-1 Viveros Referring In Womens ovarian 3-201 Monet. Provider: Mendy ACEVEDO, syndromeEncounter 7 700 Monet Viveros PO Box for oth general Medical K, 700 1522, cnsl and advice [facility], on , [facility] Dr MCKEON, procreationEncoun 120, Sly 120, [id number], ter for [place], test, result LINDA, LINDA, tel: [phone]. , [place]. tel: tel: [phone] Jaime Horton Secondary Aug-2 Viveros Referring In Womens oligomenorrheaSec 2-201 Monet. Provider: Mendy ACEVEDO, ondary 7 700 Monet Viveros PO [facility], 700 1522, [facility] Lj, David Smear , [place], Screening, 120, Sly 120, , CervixEncounter [place], for oth general [place], [place], tel: cnsl and advice [phone]. on procreation , [place]. tel: tel: [phone] [facility] Mar-2 [place] In Womens 8-200 Ledy. [facility], 8 700 PO Box Medical 1522, Center Lj, , [place], 120, [id number], [place], [place], tel: [phone] , [place]. tel: [phone] Family History Family Member Diagnosis Age At [...] Source: Other Provider Influenza, injectable, completed Note: [facility] quadrivalent, preservative free, 3 Employee ; Source: Other yrs or older Provider Payers Payer name Insurance type Covered republican ID Authorization(s) [facility] [id number] BCBS Out Of State [id number] Social History Type Description Quantity Date Captured [...] Future Order: Radiology Order Ultrasound OB Follow-up ([id number]) Ordered Future Order: Lab Order HIV 1/0/2 Ag/Ab with Reflex Ordered ([id number]) Future Order: Lab Order Obstetric Panel With Ordered Fourth-generation HIV ([id number]) Future Order: Lab Order hCG,Beta Subunit, Qnt, Serum Ordered ([id number]) Date Type Problem Goal Intervention Status Start [...]
--- OUTSIDE RECORDS SUMMARY | 2017-10-13 06:29 | External Medical Summary | Continuity of Care Document ---
:1984 Author Organization [facility] Address [address] [place], [place] [phone] Phone Care Team Providers Name Role Phone [...] gain Pap Smear Screening, Cervix Encounter for [facility] general [facility] and - advice on procreation Procedures Procedure Date Office/outpatient visit,yudi, [facility] Specimen handling/transport Results Test Name Date [...] Medical K, 700 1522, mal weight gainPap [facility], Smear Screening, , [place] Dr MCKEON, CervixEncounter for 120, Sly 120, [id number], [facility] general cnsl [place], and advice on [place], [place], tel: procreation [phone]. , [place]. tel: tel: [phone] [facility] [place] Mar-2 [place] In Womens 8-200 Ledy. Health [place], 8 700 PO [facility] 1522, [place] Dr Lj, [place], 120, [id number], [place], [place], tel: [phone] , . tel: [phone] Family History Family Member Diagnosis Age At [...] republican ID Authorization(s) BCBS Out Of State [id number] Social History Type Description Quantity Date Captured [...] Status Goal Lifestyle education regarding diet completed Future Order: Lab Order Pap Smear With HPV Reflex If ASCUS Ordered ([id number]) Date Type Problem Goal Intervention Status Start [...]
--- OUTSIDE RECORDS SUMMARY | 2017-10-13 06:29 | External Medical Summary | Continuity of Care Document ---
:1984 Author Organization [facility] Address [address] [place], [place] [id number] Phone Care Team Providers Name Role Phone [...] ot general cnsl and advice on procreation Secondary oligomenorrhea Secondary oligomenorrhea Abnormal weight gain Pap Smear Screening, Cervix Encounter for ot general cnsl and - advice on procreation Procedures Procedure Date Office/outpatient visit,est, mod Results Test Name Date and Time Measure Units Reference Range Abnormal Flag Comments Unknown Advance Directives Directive Yes / No Effective Date File Name Unknown Encounters Encounter Practice Location Reason(s) Diagnoses Date Provider Care Team Description For Visit Members Office/outpa [facility] discuss Polycystic ovarian Nov- Viveros Referring tient In Womens PCOS syndromeEncounter 3-201 Monet. Provider: visit,yudi, Health PA, (chief for ot general 7 700 Monet Viveros mod PO Box complaint) cnsl and advice on Medical K, 700 1522, procreation [facility] [address], [place] Dr MCKEON, 120, Sly 120, [id number], [place], [place] MCKEON, tel:[phone]. , [place]. tel: tel: [phone] [facility] Oct- Viveros Referring In Womens oligomenorrheaSecon 2-201 Monet. Provider: jessica Salinas 7 700 Monet Viveros PO Box oligomenorrheaAbnor Medical K, 700 1522, mal weight gainPap [facility] Lj, Smear Screening, , [place] Dr MCKEON, CervixEncounter for 120, Sly 120, , ot general cnsl [place], and advice on [place], [place], tel: procreation [phone]. , [place]. tel: tel: [phone] Jaime Horton May- [place] In Womens 8-200 Ledy. Mendy ACEVEDO, 8 700 PO Box Medical 1522, Center Dr Lj, [place], 120, [id number], [place], [place], tel: [phone] , . tel: [phone] Family History Family Member Diagnosis Age At [...] Unknown Payers Payer name Insurance type Covered democrat ID Authorization(s) BCBS Out Of State [id number] Social History Type Description Quantity Date Captured [...]
--- OUTSIDE RECORDS SUMMARY | 2017-10-13 06:29 | External Medical Summary | Continuity of Care Document ---
:1984 Author Organization [facility] Address [address] [place], [place] [phone] Phone Care Team Providers Name Role Phone Yanni Rizzo APRN Unavailable Unavailable Allergies, Adverse Reactions, Alerts Substance Reaction Severity Status No Known Drug Allergies Unknown Active Medications Medication Instructions Dosage Effective Dates Status Comments (start - stop) FOLIC ACID - Active (unknown strength) 28 mg take 1 tablet by Not Available - Active iron-800 mcg oral route every tablet day Problems Condition Effective Dates (start - stop) Clinical Status Oth infect w sexl mode of transmiss [...] and - advice on procreation Irregular Menses Encounter for suprvsn of normal - , first trimester 11 weeks gestation of - Encounter for suprvsn of normal - , second trimester Encounter For Screening For - Malformations 15 weeks gestation of - Procedures Procedure Date OB Visit No Charge Infct antign, chlamydia trac, ampl Neisseria Gonorrhea, Amplified DNA Results Test Name Date and Time Measure Units Reference Range Abnormal Flag Comments Panel Description: GC/CT Amplified Probe Chlamydia Trachomatis RNA, [facility] 16:44:40 Negative Negative N Neisseria Gonorrhoeae RNA, [facility] 16:44:40 Negative Negative N Advance Directives Directive Yes / No Effective Date File Name Unknown Encounters Encounter Practice Location Reason(s) Diagnoses Date Provider Care Team Description For Visit Members Jaime Horton Oth infect w sexl May- Viveros Referring In Womens mode of transmiss 7-201 Monet. Provider: Mendy ACEVEDO, comp preg, second 8 700 Monet Viveros [facility], suprvsn of normal [facility], , second Dr, [facility] [place] Dr MCKEON, [email or web address] weeks 120, Sly 120, , gestation of [place], [place], [place], tel:[phone]. , [place]. tel: tel: [phone] Jaime Horton Encounter for Apr- Viveros Referring In Womens suprvsn of normal 7-201 Monet. Provider: Mendy ACEVEDO, , second 8 700 Monet Viveros PO Box [facility], 700 1522, For [facility], Screening For Dr, [facility] [place] Dr MCKEON, [id number] 120, Sly 120, [id number], weeks gestation of [place], [place] MCKEON, tel: [phone]. , [place]. tel: tel: [phone] Jaime Horton Encounter for Mar- Viveros Referring In Womens suprvsn of normal 0-201 Monet. Provider: Mendy ACEVEDO, , first 8 700 Monet Viveros PO Box [email or web address] weeks Medical , 700 1522, gestation of [facility], Dr, [facility] [place] Dr MCKEON, 120, Sly 120, , [place] H[place], [place] MCKEON, tel: [phone]. , [place]. tel: tel: [phone] Jaime Horton Encounter for Mar- Viveros Referring In Womens suprvsn of normal 2-201 Monet. Provider: Mendy ACEVEDO, , first 8 700 Monet Viveros PO Box trimesterLess than Medical K, 700 1522, 8 weeks gestation [facility], of , [facility] [place] Dr MCKEON, 120, Sly 120, [id number], [place], [place] MCKEON, tel:+ [phone]. , [place]. tel: tel: [phone] [facility] Irregular Menses Dec-2 Viveros In Womens 1-201 Monet. Mendy ACEVEDO, 7 700 PO Box Medical 1522, [place] Dr Lj, [facility] [place]DA, 120, [id number], [place], [place], tel: [phone] , [place]. tel: [phone] [facility] Polycystic ovarian Sep-1 Viveros Referring In Womens syndromeEncounter 3-201 Monet. Provider: Mendy ACEVEDO, for oth general 7 700 Monet Viveros PO Box cnsl and advice on Medical K, 700 1522, procreationEncounte [facility], for , [facility] [place] Dr MCKEON, test, result 120, Sly 120, [id number], negative Clifford H[place], [place] MCKEON, tel: [phone]. , [place]. tel: tel: [phone] [facility] Secondary Aug-2 Viveros Referring In Womens oligomenorrheaSecon 2-201 Monet. Provider: jessica Salinas 7 700 Monet Viveros PO Box oligomenorrheaAbnor Medical K, 700 1522, mal weight gainPap [facility], Smear Screening, , [facility] [place] Dr MCKEON, CervixEncounter for 120, Sly 120, [id number], oth general cnsl [place], and advice on LIN[place], [place], tel: procreation [phone]. , [place]. tel: tel: [phone] [facility] Mar-2 [place] In Womens 8-200 Ledy. Health KRISTINA, 8 700 PO Box Medical 15[address], [place] [address] Lj, [place], 120, [id number], [facility] [place], tel:[phone] , [place]. tel: [phone] Family History Family Member Diagnosis Age At [...] Date Status Comments Influenza, injectable, completed Note: [facility] quadrivalent, preservative free, 3 Employee ; Source: Other yrs or older Provider Payers Payer name Insurance type Covered green party ID Authorization(s) [employer] [id number] BCBS Out Of State [id number] Social History Type Description Quantity Date Captured Alcohol Use Details No Caffeine Use Details Unknown Tobacco Use Status Unknown Smoking Status Never smoker Vital Signs Date / Height Weight BMI Pulse Blood Temperature Respiratory Body Head BMI Time: Rate Pressure Rate Surface Circumference percentile Area 42.0 -2018 2 4:12 kg/m PM eter (2) 229.40 41.8 134/74 -2018 lbs 2 mm[Hg] 4:21 kg/m PM eter (2) Chief Complaint And Reason For Visit Unknown Chief Complaint And Reason For Visit Reason For Referral Reason For Referral Unknown Plan Of Care Date Type Action Status Goal Lifestyle education regarding diet completed Goal Lifestyle education regarding diet completed Appointment Huong Herrera BOOKED Future Order: Lab Order HIV 1/0/2 Ag/Ab with Reflex ([id number]) Ordered Future Order: Lab Order Obstetric Panel With Fourth-generation Ordered HIV ([id number]) Future Order: Lab Order hCG,Beta Subunit, Qnt, Serum ([id number]) Ordered Date Type Problem Goal Intervention Status [...]
--- OUTSIDE RECORDS SUMMARY | 2017-10-13 06:29 | External Medical Summary | Continuity of Care Document ---
:1985 Author Organization [facility] Address [address] [place], [place] [id number] Phone Care Team Providers Name Role Phone [...] weeks gestation of - Procedures Procedure Date Unknown Results Test Name Date and Time Measure Units Reference Range Abnormal Flag Comments Unknown Advance Directives Directive Yes / No Effective Date File Name Unknown Encounters Encounter Practice Location Reason(s) Diagnoses Date Provider Care Team Description For Visit Members Jaime Horton Gestational Aug- Viveros Referring In Womens diabetes mellitus 8- Monet. Provider: Mendy ACEVEDO, in , 8 700 Monet Viveros PO Box diet [id number] Medical K, 700 1522, weeks gestation [facility] Dr MCKEON, 120, Sly 120, [id number], Clifford Horton, [facility], [place], tel:[phone] , [place]. tel: tel: [phone] Jaime Horton Gestational Aug- Viveros Referring In Womens diabetes mellitus 1-201 Omnet. Provider: Mendy ACEVEDO, in , 8 700 Monet Viveros PO Box diet [id number] Medical K, 700 1522, weeks gestation [facility] [address], 120, Sly 120, [id number], Clifford [place], [facility], [place], tel: [phone]. , [place]. tel: tel: [phone] Jaime Horton Daren-0 Viveros In Womens 7-201 Monet. Health PA, 8 700 PO Box Medical 1522, [place], Dr, Sly MCKEON, 120, [id number], [place], [place], tel: [phone] , [place]. tel: [phone] Jaime Horton Gestational Daren-0 Viveros Referring In Womens diabetes mellitus 4-201 Monet. Provider: Health PA, in , 8 700 Monet Viveros PO Box diet [email or web address] Medical , 700 1522, weeks gestation [facility], of , [facility] Dr MCKEON, 120, Sly 120, , Clifford [place], [place], [place], tel: [phone]. , [place]. tel: tel: [phone] Jaime Horton Gestational Daren-0 Viveros Referring In Womens Ultrasound diabetes mellitus 4-201 Monet. Provider: Health PA, in , 8 700 Monet Viveros PO Box diet [id number] Medical K, 700 1522, weeks gestation [facility], of , [facility] Dr MCKEON, 120, Sly 120, [id number], Clifford [place], [place], [place], tel: [phone]. , [place]. tel: tel: [phone] Jaime H[place] Encounter for May-2 Viveros Referring In Womens suprvsn of normal 3-201 Monet. Provider: Health PA, , third 8 700 Monet Viveros PO Box [id number] weeks Medical K, 700 1522, gestation of [facility], , [facility] Dr MCKEON, 120, Sly 120, , Clifford [place], [place], [place], tel: [phone]. , [place]. tel: tel: [phone] Jaime H[place] Gestational May-2 Viveros Referring In Womens diabetes mellitus 2-201 Monet. Provider: Mendy ACEVEDO, in , 8 700 Monet Viveros PO Box diet Medical , 700 1522, weeks gestation [facility], of , [facility] Dr MCKEON, 120, Sly 120, [id number], Clifford [place], [place], [place], tel:+ [phone]. , [place]. tel: tel: [phone] Jaime Horton May-2 Viveros In Womens 1-201 Monet. Mendy ACEVEDO, 8 700 PO Box Medical 1522, [place], , [facility] [place], 120, [id number], [place], [place], tel: [phone] , [place]. tel: [phone] Jaime [place] Encounter for Apr-2 Viveros Referring In Womens suprvsn of normal 4-201 Monet. Provider: Mendy ACEVEDO, , second 8 700 Monet Viveros PO Box [id number] weeks Medical , 700 1522, gestation of [facility], , [facility] Dr MCKEON, 120, Sly 120, , Clifford [place], [place], [place], tel:+ [phone]. , [place]. tel: tel: [phone] Jaime Horton Oth infect w sexl Mar-2 Viveros Referring In Womens mode of transmiss 7-201 Monet. Provider: Mendy ACEVEDO, comp preg, second 8 700 Monet Viveros PO Box triEncounter for Medical K, 700 1522, suprvsn of normal [facility], , second , [facility] Dr MCKEON, weeks 120, Sly 120, [id number], gestation of Clifford [place], [place], [place], tel: [phone]. , [place]. tel: tel: [phone] Jaime Horton Encounter for Feb-2 Viveros Referring In Womens suprvsn of normal 7-201 Monet. Provider: Mendy ACEVEDO, , second 8 700 Monet Viveros PO Box trimesterEncounte Medical K, 700 1522, r For [facility], Screening For Dr, [facility] Dr MCKEON, [id number] 120, Sly 120, [id number], weeks gestation Clifford [place], [place] of [place], [place], tel: [phone]. , [place]. tel: tel: [phone] Jaime Horton Encounter for Jeferson-3 Viveros Referring In Womens suprvsn of normal 0-201 Monet. Provider: Mendy ACEVEDO, , first 8 700 Monet Viveros PO Box [id number] weeks Medical , 700 1522, gestation of [facility], Dr, [facility] Dr MCKEON, 120, Sly 120, , Clifford [place], [place], tel: [phone]. , [place]. tel: tel: [phone] Jaime H[place] Encounter for Jeferson-0 Viveros Referring In Womens suprvsn of normal 2-201 Monet. Provider: Mendy ACEVEDO, , first 8 700 Monet Viveros PO Box trimesterLess Medical , 700 1522, than 8 weeks [facility], gestation of Dr, [facility] Dr MCKEON, 120, Sly 120, , Clifford [place], [place] MCKEON, tel: [phone]. , [place]. tel: tel: [phone] Jaime H[place] Irregular Menses Dec-2 Viveros In Womens 1-201 Monet. Mendy ACEVEDO, 7 700 PO Box Medical 1522, [place] Dr Lj, Sly [place], 120, [id number], Clifford, [place], tel:[phone] , [place]. tel: [phone] Jaime H[place] Polycystic Sep-1 Viveros Referring In Womens ovarian 3-201 Monet. Provider: Mendy ACEVEDO, syndromeEncounter 7 700 Monet Viveros PO Box for oth general Medical K, 700 1522, [facility] on , [facility] Dr MCKEON, procreationEncoun 120, Sly 120, , ter for [place], test, [place], tel: [phone]. , [place]. tel: tel: [phone] [facility] Oct- Viveros Referring In Womens oligomenorrheaSec 2-201 Monet. Provider: Health KRISTINA, ondary 7 700 Monet Viveros [facility], [facility] 1522, [facility], David Smear , [place], Screening, 120, Sly 120, , CervixEncounter Clifford [place], for oth general [place] MCKEON, tel: cnsl and advice [phone]. on procreation , [place]. tel: tel: [phone] Jaime Horton May-2 [place] In Womens 8-200 Ledy. Health KRISTINA, 8 700 PO Box Medical 1522, [place] Dr Lj, [place], 120, , [place], tel: [phone] , [place]. tel: [phone] Family History Family Member Diagnosis Age At [...] Source: Other Provider Influenza, injectable, completed Note: [facility] quadrivalent, preservative free, 3 Employee ; Source: Other yrs or older Provider Payers Payer name Insurance type Covered democrat ID Authorization(s) [facility] [id number] BCBS Out Of State [place] [id number] Social History Type Description Quantity Date Captured [...] Order HIV 1/0/2 Ag/Ab with Reflex Ordered ([id number]) Future Order: Lab Order Obstetric Panel With Ordered Fourth-generation HIV ([id number]) Future Order: Lab Order hCG,Beta Subunit, Qnt, Serum Ordered ([id number]) Future Order: Radiology Order Ultrasound OB Follow-up ([id number]) Ordered Date Type Problem Goal Intervention Status [...]
--- OUTSIDE RECORDS SUMMARY | 2017-10-13 06:29 | External Medical Summary | Continuity of Care Document ---
:1985 Author Organization [facility] Address [address] [place], [place] [phone] Phone Care Team Providers Name Role Phone [...] Procedures Procedure Date OB Visit No Charge Cult, bactr, jacqueline colonycnt, urine Cult, bactr, ident isolate, urine Cult bactr, aerobic, addl methods Results Test Name Date and Time Measure Units Reference Range Abnormal Flag Comments Panel Description: Bacteria identified in Urine by Culture Urine Culture, 13:58:00 Final report A Routine Result 1 13:58:00 Comment A Beta hemolytic Streptococcus, group B10,000-25,000 colony forming units per mLPenicillin and ampicillin are drugs of choice for treatment ofbeta-hemolytic streptococcal infections. Susceptibility testing ofpenicillins and other beta-lactam agents approved by the FDA fortreatment of beta-hemolytic streptococcal infections need not beperformed routinely because nonsusceptible isolates are extremelyrare in any beta-hemolytic streptococcus and have not been reportedfor Streptococcus pyogenes (group A). (CLSI 2011) Result 2 13:58:00 Comment Mixed urogenital flora10,000-25,000 colony forming units per mL Advance Directives Directive Yes / No Effective Date File Name Unknown Encounters Encounter Practice Location Reason(s) Diagnoses Date Provider Care Team Description For Visit Members [facility] Gestational Daren-1 Viveros Referring In Womens diabetes mellitus 8-201 Monet. Provider: Health PA, in , 8 700 Monet Viveros PO Box diet [id number] Medical K, 700 1522, weeks gestation [facility], of , [facility] Dr MCKEON, 120, Sly 120, [id number], Clifford [place], [place]ON, tel:+ [phone]. , [place]. tel: tel: [phone] Jaime Horton Gestational Daren-1 Viveros Referring In Womens diabetes mellitus 1-201 Monet. Provider: Health PA, in , 8 700 Monet Viveros PO Box diet [id number] Medical , 700 1522, weeks gestation [facility], of , [facility] Dr MCKEON, 120, Sly 120, , Clifford [place], [place], tel:+ [phone]. , [place]. tel: tel: [phone] Jaime Horton Gestational Daren-0 Viveros Referring In Womens diabetes mellitus 4-201 Monet. Provider: Health PA, in , 8 700 Monet Viveros PO Box diet [id number] Medical K, 700 1522, [facility] Dr [facility] Dr MCKEON, 120, Sly 120, [id number], Clifford [place], [place], tel:+ [phone]. , [place]. tel: tel: [phone] Jaime Horton Gestational Daren-0 Viveros Referring In Womens Ultrasound diabetes mellitus 4-201 Monet. Provider: Health PA, in , 8 700 Monet Viveros PO Box diet [id number] Medical K, 700 1522, weeks gestation [facility] [place], of Dr [facility] Dr MCKEON, 120, Sly 120, [id number], Clifford [place], [place], [place], tel:+ [phone]. , [place]. tel: tel: [phone] Jaime Horton Encounter for May- Viveros Referring In Womens suprvsn of normal 3-201 Monet. Provider: Mendy ACEVEDO, , third 8 700 Monet Viveros PO Box [id number] weeks Medical K, 700 1522, gestation of [facility], , [facility] [place], 120, Sly 120, [id number], [place], [place], [place], tel:[phone]. , [place]. tel: tel: [phone] Jaime Horton Gestational May-2 Viveros Referring In Womens diabetes mellitus 2-201 Monet. Provider: Mendy ACEVEDO, in , 8 700 Monet Viveros PO Box diet [email or web address] Medical , 700 1522, weeks gestation [facility], of , [facility] [place], 120, Sly 120, [id number], Clifford [place], [place], [place], tel:+ [phone]. , [place]. tel: tel: [phone] Jaime H[place] May-2 Viveros In Womens 1-201 Monet. Mendy ACEVEDO, 8 700 PO Box Medical 1522, [place], , [place], 120, [id number], [place], tel:[phone] , [place]. tel: [phone] Jaime H[place] Encounter for Apr-2 Viveros Referring In Womens suprvsn of normal 4-201 Monet. Provider: Mendy ACEVEDO, , second 8 700 Monet Viveros PO Box [email or web address] weeks Medical , 700 1522, gestation of [facility], , [facility] Dr MCKEON, 120, Sly 120, [id number], [place], [place], tel:+ [phone]. , [place]. tel: tel: [phone] Jaime Horton Oth infect w sexl Mar-2 Viveros Referring In Womens mode of transmiss 7-201 Monet. Provider: Mendy ACEVEDO, comp preg, second 8 700 Monet Viveros PO Box triEncounter for Medical K, 700 1522, suprvsn of normal [facility], , second , [facility] Dr MCKEON, [id number] weeks 120, Sly 120, , gestation of Clifford [place], [place], [place], tel: [phone]. , [place]. tel: tel: [phone] Jaime Horton Encounter for Feb-2 Viveros Referring In Womens suprvsn of normal 7-201 Monet. Provider: Mendy ACEVEDO, , second 8 700 Monet Viveros PO Box trimesterEncounte Medical , 700 1522, r For [facility], Screening For , [facility] Dr MCKEON, [id number] 120, Sly 120, , weeks gestation Clifford [place], [place] of [place], tel: [phone]. , [place]. tel: tel: [phone] Jaime Horton Encounter for Jeferson-3 Viveros Referring In Womens suprvsn of normal 0-201 Monet. Provider: Mendy ACEVEDO, , first 8 700 Monet Viveros PO Box [id number] weeks Medical , 700 1522, gestation of [facility] [place], , [facility] Dr MCKEON, 120, Sly 120, , Clifford [place], [place], tel: [phone]. , [place]. tel: tel: [phone] Jaime Horton Encounter for Jeferson-0 Viveros Referring In Womens suprvsn of normal 2-201 Monet. Provider: Mendy ACEVEDO, , first 8 700 Monet Viveros PO Box trimesterLess Medical K, 700 1522, than 8 weeks [facility] [place], gestation of Dr, [facility] Dr MCKEON, 120, Sly 120, , Clifford [place], [place], tel:[phone]. , [place]. tel: tel: [phone] Jaime H[place] Irregular Menses Dec-2 Viveros In Womens 1-201 Monet. Health KRISTINA, 7 700 PO Box Medical 1522, [place] [address] L[place], [facility] [place], 120, [id number], [place], tel:[phone] , [place]. tel: [phone] Jaime H[place] Polycystic Sep-1 Viveros Referring In Womens ovarian 3-201 Monet. Provider: Health KRISTINA, syndromeEncounter 7 700 Monet Viveros PO Box for oth general Medical K, 700 1522, cnsl and advice [facility] Lj on , [facility] Dr MCKEON, procreationEncoun 120, Sly 120, [id number], ter for Clifford [place], test, result [place], [place], tel:+ [phone]. , [place]. tel: tel: [phone] Jaime Horton Secondary Aug-2 Viveros Referring In Womens oligomenorrheaSec 2-201 Monet. Provider: Mendy ACEVEDO ondary 7 700 Monet Viveros PO Box oligomenorrheaAbn Medical K, 700 1522, ormal weight [facility] [address] Smear , [facility] Dr MCKEON, Screening, 120, Sly 120, [id number], CervixEncounter Clifford [place], [place] for oth general [place], tel:+ cnsl and advice [phone]. on procreation , [place]. tel: tel: [phone] Jaime Horton Mar-2 [place] In Womens 8-200 Ledy. Health KRISTINA, 8 700 PO Box Medical 1522, [place] [address] Lj, [facility] [place], 120, [id number], [place], tel:[phone] , [place]. tel: [phone] Family History Family Member Diagnosis Age At [...] Source: Other Provider Influenza, injectable, completed Note: [facility] quadrivalent, preservative free, 3 Employee ; Source: Other yrs or older Provider Payers Payer name Insurance type Covered libertarian ID Authorization(s) [facility] [id number] BCBS Out Of State [id number] Social History Type Description Quantity Date Captured Alcohol Use Details No Caffeine Use Details Unknown Tobacco Use Status Unknown Smoking Status Never smoker Vital Signs Date / Height Weight BMI Pulse Blood Temperature Respiratory Body Head BMI Time: Rate Pressure Rate Surface Circumference percentile Area 231.30 42.1 -2018 lbs 6 1:17 kg/m PM eter (2) 231.30 42.1 120/73 -2018 lbs 6 mm[Hg] 1:35 kg/m PM eter (2) Chief Complaint And Reason For Visit Unknown Chief Complaint And Reason For Visit Reason For Referral Reason For Referral Unknown Plan Of Care Date Type Action Status Goal Lifestyle education regarding completed diet Goal Lifestyle education regarding completed diet Appointment Huong Herrera BOOKED Appointment Huong Herrera BOOKED Future Order: Lab Order HIV 1/0/2 Ag/Ab with Reflex Ordered ([id number]) Future Order: Lab Order Obstetric Panel With Ordered Fourth-generation HIV ([id number]) Future Order: Lab Order hCG,Beta Subunit, Qnt, Serum Ordered ([id number]) Future Order: Radiology Order Ultrasound OB Follow-up ([id number]) Ordered Date Type Problem Goal Intervention Status [...]
--- OUTSIDE RECORDS SUMMARY | 2017-10-13 06:29 | External Medical Summary | Continuity of Care Document ---
:1985 Author Organization [facility] [employer] [facility] Address [address] [place], [place] [phone] Phone Care Team Providers Name Role Phone [...] Description For Visit Members Jaime Horton Gestational Daren-0 Viveros Referring In Womens diabetes mellitus 4-201 Monet. Provider: Mendy ACEVEDO, in , 8 700 Monet Viveros PO Box diet [email or web address] Medical K, 700 1522, weeks gestation [facility] Dr MCKEON, 120, Sly 120, [id number], Clifford [place], [facility], [place], tel:[phone]. [phone] , [place]. tel: tel: [phone] Jaime Horton Gestational Daren-0 Viveros Referring In Womens Ultrasound diabetes mellitus 4-201 Monet. Provider: Mendy ACEVEDO, in , 8 700 Monet Viveros PO Box diet [id number] Medical K, 700 1522, weeks [facility] Dr [facility] Dr MCKEON, 120, Sly 120, [id number], Clifford H[place], [facility], [place], tel:[phone]. [phone] , [place]. tel: tel: [phone] Jaime Horton Encounter for July- Viveros Referring In Womens suprvsn of normal 3-201 Monet. Provider: Health PA, , third 8 700 Monet Viveros PO Box [email or web address] weeks Medical , 700 1522, gestation of [facility], , [facility] [place], 120, Sly 120, [id number], Clifford [place], [place], [place], tel:+ [phone]. , [place]. tel: tel: [phone] Jaime Horton Gestational May-2 Viveros Referring In Womens diabetes mellitus 2-201 Monet. Provider: Health KRISTINA, in , 8 700 Monet Viveros PO Box diet [id number] Medical , 700 1522, weeks gestation [facility], of , [facility] Dr MCKEON, 120, Sly 120, , Clifford [place], [place], [place], tel: [phone]. , [place]. tel: tel: [phone] Jaime H[place] May-2 Viveros In Womens 1-201 Monet. Health KRISTINA, 8 700 PO Box Medical 1522, [place], , [facility] [place], 120, [id number], [place], tel: [phone] , [place]. tel: [phone] Jaime H[place] May-1 Viveros Referring In Womens 8-201 Monet. Provider: Mendy ACEVEDO, 8 700 Monet Vievros PO Box Medical K, 700 1522, [place] [address], [facility] Dr MCKEON, 120, Sly 120, [id number], Clifford [place], [place], [place], tel: [phone]. , [place]. tel: tel: [phone] Jaime H[place] Encounter for Apr-2 Viveros Referring In Womens suprvsn of normal 4-201 Monet. Provider: Mendy ACEVEDO, , second 8 700 Monet Viveros PO Box [email or web address] weeks Medical K, 700 1522, gestation of [facility], , [facility] Dr MCKEON, 120, Sly 120, [id number], Clifford [place], [place], [place], tel:[phone]. , [place]. tel: tel: [phone] Jaime Horton Oth infect w sexl Mar-2 Viveros Referring In Womens mode of transmiss 7-201 Monet. Provider: Mendy ACEVEDO, comp preg, second 8 700 Monet Viveros PO Box triEncounter for Medical K, 700 1522, suprvsn of normal [facility], , second , [facility] Dr MCKEON, [id number] weeks 120, Sly 120, , gestation of Clifford [place], [place], [place], tel: [phone]. , [place]. tel: tel: [phone] Jaime Horton Encounter for Fe-2 Viveros Referring In Womens suprvsn of normal 7-201 Monet. Provider: Mendy ACEVEDO, , second 8 700 Monet Viveros PO Box [facility] , 700 1522, r For [facility], Screening For Dr, [facility] Dr MCKEON, [id number] 120, Sly 120, [id number], weeks gestation Clifford [place], [place] of [place], [place], tel: [phone]. , [place]. tel: tel: [phone] Jaime Horton Encounter for Jeferson-3 Viveros Referring In Womens suprvsn of normal 0-201 Monet. Provider: Mendy ACEVEDO, , first 8 700 Monet Viveros PO Box [id number] weeks Medical , 700 1522, gestation of [facility], Dr, [facility] Dr MCKEON, 120, Sly 120, , Clifford [place], [place] MCKEON, tel: [phone]. , [place]. tel: tel: [phone] Jaime H[place] Encounter for Jeferson-0 Viveros Referring In Womens suprvsn of normal 2-201 Monet. Provider: Mendy ACEVEDO, , first 8 700 Monet Viveros PO Box trimesterLess Medical K, 700 1522, than 8 weeks [facility], gestation of , [facility] Dr MCKEON, 120, Sly 120, , [place], [place], [place], tel: [phone]. , [place]. tel: tel: [phone] [facility] Irregular Menses Dec-2 Viveros In Womens 1-201 Monet. Mendy ACEVEDO, 7 700 PO Box Medical 1522, [place] Dr Lj, [place], 120, [id number], [place], [place], tel:[phone] , [place]. tel: [phone] [facility] Polycystic Sep-1 Viveros Referring In Womens ovarian 3-201 Monet. Provider: Mendy ACEVEDO syndromeRosario 7 700 Monet Viveros PO Box for ot general Medical , 700 1522, cnsl and advice [facility] [address], [facility] Dr MCKEON, procreationEncoun 120, Sly 120, [id number], ter for Clifford [place], test, result [place], [place], tel: negative [phone]. , [place]. tel: tel: [phone] [facility] Secondary Aug-2 Viveros Referring In Womens oligomenorrheaSec 2-201 Monet. Provider: aziza Salinas 7 700 Monet Viveros PO Box oligomenorrheaAbn Medical , 700 1522, ormal weight [facility], [address], [facility] Dr MCKEON, Screening, 120, Sly 120, [id number], CervixEncounter Clifford [place], for oth general [place], [place], tel: cnsl and advice [phone]. on procreation , [place]. tel: tel: [phone] [facility] Mar-2 [place] In Womens 8-200 Ledy. Health KRISTINA, 8 700 PO Box Medical 1522, [place] Dr Lj, [place], 120, [id number], [place], [place], tel:[phone] , [place]. tel: [phone] Family History Family Member Diagnosis Age At [...] Status Comments Influenza, injectable, completed Note: [facility] quadrivalent, preservative free, 3 Employee ; Source: Other yrs or older Provider Payers Payer name Insurance type Covered green party ID Authorization(s) Factor 14 [id number] BCBS Out Of State [id number] Social History Type Description Quantity Date Captured [...] regarding completed diet Appointment Huong Herrera BOOKED Future Order: Lab Order HIV 1/0/2 Ag/Ab with Reflex Ordered ([id number]) Future Order: Lab Order Obstetric Panel With Ordered Fourth-generation HIV ([id number]) Future Order: Lab Order hCG,Beta Subunit, Qnt, Serum Ordered ([id number]) Future Order: Radiology Order Ultrasound OB Follow-up ([id number]) Ordered Date Type Problem Goal Intervention Status [...]
[2017-10-13] MEDS ORDERED: AMPICILLIN 1 GM in NS 100 ML IV SCH (06:30)
[2017-10-13 06:36] VITALS: BMI 42.4
[2017-10-13] MEDS: LR 1,000 ML IV PRN ×2 (06:56→12:54)
[2017-10-13] MEDS ORDERED: AMPICILLIN 2 GM in NS 100 ML IV ONE (07:00)
[2017-10-13] MEDS ORDERED: DiphenhydrAMINE 50 MG/ML INJECTION IVP PRN (13:35)
[2017-10-13] MEDS ORDERED: ONDANSETRON 4 MG/2 ML INJECTION IVP PRN (13:35)
[2017-10-13] MEDS ORDERED: ROPIVACAINE 1% 10MG/ML INJ 200 MG, SUFentanil 50 MCG in NS 100 ML EPI PRN (13:35)
[2017-10-13] MEDS ORDERED: NALOXONE 0.4 MG/ML INJECTION IVP PRN (13:35)
--- NOTE | 2017-10-13 13:35 | Anesthesia Preoperative Report ---
Anesthesia Epidural/Spinal Rec - Date and Time Date: 10/13/17 Procedure: Labor Epidural Plan: Epidural - Vital Signs Vital Signs: Temperature 98.1 F 10/13/17 06:14 Pulse Rate 123 H 10/13/17 06:14 Respiratory Rate 18 10/13/17 06:14 Blood Pressure 140/89 H 10/13/17 06:14 Pulse Oximetry 97 10/13/17 06:14 /Para: P:2 - Medictaions & Allergies Inpatient Medications: Current Medications Acetaminophen (Tylenol) 500 - 1,000 mg PO Q4H PRN PRN Reason: Pain Al Hydroxide/Mg Hydroxide (Maalox Plus) 30 ml PO Q3H PRN PRN Reason: Indigestion Calcium Carbonate (Tums) 500 - 1,000 mg PO Q2H PRN PRN Reason: Indigestion Carboprost Tromethamine (Hemabate) 250 mcg IM O PRN PRN Reason: .Downtime Ampicillin Sodium 1 gm/ Sodium (Chloride) 100 mls @ 200 mls/hr IV Q4H WHITNEY Last Admin: 10/13/17 10:59 Dose: 200 mls/hr Dextrose/Lactated Ringer's (Dextrose 5%-Lactated Ringers) 1,000 mls @ 125 mls/ hr IV .Q8H PRN PRN Reason: Labor Last Admin: 10/13/17 06:57 Dose: 125 mls/hr Lactated Ringer's (Lactated Ringers) 1,000 mls @ 999 mls/hr IV .Q1H1M PRN Last Admin: 10/13/17 12:54 Dose: 999 mls/hr Oxytocin (Pitocin Drip) 30 unit in 500 mls @ 2 mls/hr IV .Q24H PRN; Protocol PRN Reason: Induction/Augmentation Last Admin: 10/13/17 06:57 Dose: 2 mls/hr Lidocaine HCl (Xylocaine-Mpf 1% Vial) 0.2 mg ID O PRN PRN Reason: IV Start Methylergonovine Maleate (Methergine) 0.2 mg IM O PRN Misoprostol (Cytotec) 800 mcg [place] ONCE PRN Sodium Chloride (Iv Flush) 10 - 80 ml IV PRN PRN PRN Reason: Flushing Allergies/Adverse Reactions: Allergies Allergy/AdvReac Type Severity Reaction Status Date / Time No Known Allergies Allergy Unverified 12/31/16 18:31 - Home Medications Home Medications: Home Medications Medication Instructions Recorded Confirmed Type Acetaminophen (Tylenol) 2 tab PO PRN #0 09/15/12 History CALCIUM CARBONATE Chewable [Tums 750 mg PO DAILY 10/03/17 10/13/17 History Extra Strength] Folic Acid 0.4 mg PO PRN 10/03/17 10/13/17 History Insulin Glargine [Lantus] 25 unit SQ DAILY 10/03/17 10/13/17 History Vit Calc,Iron,Folic 1 each PO DAILY 10/03/17 10/13/17 History [ Vitamins] - Medical History Cardiovascular: DENIES: Hypertension Renal/Endocrine: Reports: Other (gestational diabetes - takes insulin) Other History: Reports: Now DENIES: Anesthesia Reactions - Surgical History HEENT Surgeries: Reports: Nose Surgery (2006) Reproductive Surgery/Treatment: DENIES: Section Anesthesia Reactions: None Hx Family Anesthesia Reaction: No History of Motion Sickness: No - Social History Smoking Status: Never smoker Substance Use Type: does not use Alcohol Intake Frequency: holidays/special occasions only - Pertinent Findings Lab Data: CBC and BMP 10/13/17 06:40 10/13/17 06:40 BMP 10/13/17 06:40 Sodium 140 Potassium 4.2 Chloride 111 H Carbon Dioxide 20 L BUN 9.0 Creatinine 0.7 Glucose 92 Calcium 8.5 Liver Function 10/13/17 Range/Units 06:40 Total Bilirubin 0.70 (0.20-1.30) MG/DL AST 37 H (14-36) U/L ALT 15 (1-35) U/L Alkaline Phosphatase 113 (38-126) U/L Albumin 3.6 (3.5-5.0) g/dL - Physical Exam Respiratory Exam: lungs clear, bilateral breath sounds equal Cardiovascular Exam: regular rate and rhythm - Airway Assessment Mallampati Score: II TMD: 3 Fingerbreadths Neck Extension: good Overall Assessment: may be difficult mask vent, may be difficult intubation - ASA ASA Score: 2 - Discussion Discussion: Discussed risks/options/alternatives of anesthesia and questions answered. Patient consents. Nursing pain assessment noted. Anesthesia Discussion: spouse, family member Attestation Statement: Prior to the delivery of any anesthetic medication, I examined the patient, developed the plan, obtained the patient's consent and discussed the risk and benefits of the procedure with the patient/guardian.
[2017-10-13] MEDS ORDERED: HYDROCORTISONE 2.5% CREAM 30gm RECTALLY PRN (15:24)
[2017-10-13] MEDS ORDERED: DiphenhydrAMINE 25 MG CAPSULE PO PRN (15:24)
[2017-10-13] MEDS ORDERED: HYDROCODONE/APAP 5mg/325mg TABLET PO PRN (15:24)
[2017-10-13] MEDS ORDERED: OXYTOCIN DRIP 30 UNIT/500 ML ML IV SCH (15:30)
--- NOTE | 2017-10-13 16:11 | Labor and Delivery Note ---
DATE OF DELIVERY 10/13/2017 AMAYA Borja is a 32-year-old 3, para 2 at 38 weeks 1 day gestational age who was brought in for a Pitocin induction due to insulin-dependent gestational diabetes. She was started on antibiotics for her group B strep. Also, throughout the day she frequently had mildly elevated blood pressures consistent with gestational hypertension. Her membranes were ruptured artificially, returning clear fluids. She received an epidural. She progressed nicely throughout labor and pushed for less than 30 minutes. She had a spontaneous vaginal delivery in the ZAKIYA position of a viable male , Apgars 8/9, weight 3702 g, name "Manuel". There was a nuchal cord x 1 that was reduced. Baby was crying at delivery so he was placed on mom's abdomen. The cord clamping was delayed for more than two minutes. The placenta delivered spontaneously. She had no lacerations. She initially had a mild amount of uterine atony. I was able to remove some membranes from inside the uterus. We also gave her a dose of Hemabate due to her history of hemorrhage. Her atony resolved and her bleeding slowed down. Mom and baby tolerated the delivery well. ALMA
[2017-10-13] MEDS: IBUPROFEN 800 MG TABLET PO PRN (16:39)
[2017-10-13] MEDS ORDERED: LOPERAMIDE 2 MG CAPSULE PO PRN (17:27)
[2017-10-14] MEDS: IBUPROFEN 800 MG TABLET PO PRN ×2 (00:31→08:38)
--- NOTE | 2017-10-14 08:12 | OB/GYN Progress Note ---
OB-PP Progress Note - General PPD1 Maternal Group B Strep: Positive Maternal Rh: positive Maternal Rubella Status: Immune - Subjective Date: 10/14/17 Lochia: Minimal Pain: controlled Voiding: voiding - Objective Vital Signs: Last Vital Signs Temp 98.1 F 10/14/17 00:40 Pulse 102 H 10/14/17 06:50 Resp 16 10/14/17 06:50 BP 131/60 10/14/17 06:50 Pulse Ox 96 10/14/17 06:50 General: alert and oriented Abdomen: fundus firm, non-tender Extremities: non-tender Laboratory: Laboratory Results - last 24 hr 10/13/17 10/13/17 10/13/17 06:40 06:40 10:02 Turbidity < 20 Sodium 140 Potassium 4.2 Chloride 111 H Carbon Dioxide 20 L Anion Gap 9 BUN 9.0 Creatinine 0.7 Estimated Creat Clear 135 GFR Calculation 96 BUN/Creatinine Ratio 13 Glucose 92 Glucometer 87 Calculated Osmolality 268 Calcium 8.5 Total Bilirubin 0.70 Conjugated Bilirubin 0.00 Unconjugated Bilirubin 0.60 Icterus Index < 2 AST 37 H ALT 15 Alkaline Phosphatase 113 Total Protein 7.0 Albumin 3.6 Globulin 3.4 Albumin/Globulin Ratio 1.1 Specimen Hemolysis 143 H Blood Type O Positive Antibody Screen Negative 10/13/17 10/14/17 14:04 06:57 Turbidity Sodium Potassium Chloride Carbon Dioxide Anion Gap BUN Creatinine Estimated Creat Clear GFR Calculation BUN/Creatinine Ratio Glucose Glucometer 87 88 Calculated Osmolality Calcium Total Bilirubin Conjugated Bilirubin Unconjugated Bilirubin Icterus Index AST ALT Alkaline Phosphatase Total Protein Albumin Globulin Albumin/Globulin Ratio Specimen Hemolysis Blood Type Antibody Screen - Assessment Assessment: , Other (A2 GDM- FBS normal today) - Plan Plan: routine care Expected date of discharge: 10/15/17
[2017-10-14] MEDS: DOCUSATE CALCIUM 240 MG CAPSULE PO SCH (08:39)
[2017-10-15] MEDS: IBUPROFEN 800 MG TABLET PO PRN ×2 (10:02→22:06)
[2017-10-15] MEDS: DOCUSATE CALCIUM 240 MG CAPSULE PO SCH (10:02)
--- NOTE | 2017-10-15 10:11 | OB/GYN Progress Note ---
OB-PP Progress Note - General PPD2 Maternal Group B Strep: Positive Maternal Rh: positive Maternal Rubella Status: Immune - Subjective Date: 10/15/17 Lochia: Minimal Pain: controlled Voiding: voiding - Objective Vital Signs: Last Vital Signs Temp 98.8 F 10/15/17 08:34 Pulse 90 10/15/17 08:34 Resp 16 10/15/17 08:34 BP 129/75 10/15/17 08:34 Pulse Ox 96 10/14/17 23:00 Urine Output: good General: alert and oriented Abdomen: fundus firm, non-tender Extremities: non-tender - Assessment Assessment: Comments: A2 GDM- resolving - Plan Plan: routine care, discharge home, continue PNV She will continue to check sugars on occasion.
[2017-10-15 15:54] VITALS: RESP 18; O2SAT 95
[2017-10-15 22:55] VITALS: BP 137/85; PULSE 77; TEMP 98.9
== END 2017-10-15 22:55 | disposition home or self-care (01) | DRG 774 ==
LOC: MC 06:04
PROVIDERS: ADMIT Obstetrics & Gynecology; ATTEND Obstetrics & Gynecology